=== PATIENT | female | born 1990 | race African-American/Black ===

== ENCOUNTER 2019-05-01 05:29 | Emergency (ER) | payer OTHER, SELFPAY ==
[~2019-05-01] VITALS: Ht 167.6 cm; Wt 103.4 kg
[2019-05-01 05:41] VITALS: BP 135/84
[2019-05-01] MEDS ORDERED: ACETAMINOPHEN 500 MG TABLET PO ONE (06:00)
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
[2019-05-01] MEDS ORDERED: NAPR-683 PO (07:27)
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
== END 2019-05-01 07:35 | disposition home or self-care (01) ==
LOC: ER 05:29
DX: S80.02XA Contusion of left knee, initial encounter (principal); F17.210 Nicotine dependence, cigarettes, uncomplicated; V43.52XA Car driver injured in collision with other type car in traffic accident, initial encounter; Y93.89 Activity, other specified; Y92.410 Unspecified street and highway as the place of occurrence of the external cause; Y99.8 Other external cause status
CPT/HCPCS: 73562; 81025; 99284

== ENCOUNTER 2019-07-13 15:59 | Inpatient (IN) | payer OTHER ==
[~2019-07-13] VITALS: Ht 167.6 cm; Wt 98.7 kg
[~2019-07-13 15:59] MED LIST: NAPR-683 PO
[2019-07-13 16:36] LABS: BILIRUBIN,URINE NEGATIVE (NEG); CLARITY,URINE TURBID; COLOR,URINE YELLOW; NITRITE,URINE POSITIVE (NEG); PROTEIN,URINE 100 mg/dL (NEG-TRACE)
[2019-07-13 16:44] LABS: BACTERIA,URINE MANY /HPF (0-FEW); SQUAMOUS EPITHELIAL CELL,UR MANY /LPF
[2019-07-13 16:45] LABS: WBC,URINE TNTC /HPF (0-4)
[2019-07-13 16:46] LABS: TRICHOMONAS,URINE PRESENT
[2019-07-13 16:59] LABS: BARBITURATES NEG (NEG); BENZODIAZEPINES NEG (NEG); CANNABINOIDS POS (NEG); COCAINE NEG (NEG); METHADONE NEG (NEG); OPIATES NEG (NEG); PHENCYCLIDINE NEG (NEG)
[2019-07-13 17:00] LABS: AMPHETAMINE/METHAMPHETAMINE NEG (NEG)
--- NOTE | 2019-07-13 17:41 | RAD ---
Exam: Abdomen 2 views INDICATION: Abdominal pain TECHNIQUE: Upright and supine views of the abdomen Comparisons: None FINDINGS: Focally dilated loop of small bowel noted within the left hemiabdomen. No suspicious masses or calcifications. No free air. Advise osseous structures are unremarkable. IMPRESSION: Focally dilated loop of small bowel in the left hemiabdomen. This may relate to obstruction versus focal ileus. CT is recommended for further evaluation. Electronically signed by: Jerry Tavarez MD (07/13/2019 5:38 PM) [facility]
[2019-07-13] MEDS ORDERED: KETOROLAC 30 MG/ML VIAL. IV ONE (18:00)
[2019-07-13] MEDS ORDERED: cefTRIAXone IV Push 1 GM VIAL. IVP ONE (18:00)
[2019-07-13] MEDS ORDERED: ACETAMINOPHEN 500 MG TABLET PO ONE (18:00)
[2019-07-13] MEDS ORDERED: AZITHROMYCIN 250 MG TABLET. PO ONE (18:00)
[2019-07-13] MEDS ORDERED: metroNIDAZOLE 500 MG TABLET PO ONE (18:00)
[2019-07-13] MEDS ORDERED: cefTRIAXone IM 250 MG VIAL IM ONE (18:00)
[2019-07-13] MEDS ORDERED: IV NORMAL SALINE 1000ML BAG 1,000 ML IV ONE ×3 (18:00→20:15)
--- NOTE | 2019-07-13 18:19 | PHYS DOC ---
Past Medical History Past Medical History: No Pertinent History, Other Additional Past Medical Histor: Abscesses to bilateral axillae. Past Surgical History: No Surgical History Additional Past Surgical Histo: Denies I&D. Alcohol Use: None Drug Use: None Adult General Chief Complaint Chief Complaint: ABDOMINAL PAIN HPI HPI Patient is a 28 year old female with no significant medical history who presents to the ED today complaining of 8 out of 10 left lower quadrant abdomi nal pain with nausea and vomiting that began 3 days ago. Patient denies any fever. Denies any diarrhea. Denies any chance she is constipated, last BM today. Review of Systems Review of Systems Constitutional: Denies fever or chills [] Eyes: Denies change in visual acuity, redness, or eye pain [] HENT: Denies nasal congestion or sore throat [] Respiratory: Denies cough or shortness of breath [] Cardiovascular: No additional information not addressed in HPI [] GI: Reports LLQ abdominal pain, nausea, vomiting, denies bloody stools or d iarrhea [] : Denies dysuria or hematuria [] Musculoskeletal: Denies back pain or joint pain [] Integument: Denies rash or skin lesions [] Neurologic: Denies headache, focal weakness or sensory changes [] All other systems were reviewed and found to be within normal limits, except as documented in this note. Current Medications Current Medications Current Medications Medications (Trade) Dose Ordered Sig/Addie Start Time Stop Time Status Last Admin Dose Admin Acetaminophen (Tylenol) 650 mg PRN Q4HRS PRN 07/13/19 20:15 07/14/19 20:14 UNV Acetaminophen/ Hydrocodone Bitart (Lortab 5/325) 1 tab PRN Q4HRS PRN 07/13/19 20:15 Azithromycin (Zithromax) 1,000 mg 1X ONCE 07/13/19 18:00 07/13/19 18:01 DC 07/13/19 18:21 1,000 MG Bisacodyl (Dulcolax Tab) 10 mg 1X STAT 07/13/19 20:08 07/13/19 20:17 DC Ceftriaxone Sodium (Rocephin Im) 250 mg 1X ONCE 07/13/19 18:00 07/13/19 18:01 Cancel Ceftriaxone Sodium (Rocephin) 1 gm 1X ONCE 8/13/19 18:00 07/13/19 18:04 DC 07/13/19 18:21 1 GM Docusate Sodium (Colace) 100 mg DAILY 07/14/19 09:00 Info (CONTRAST GIVEN -- Rx MONITORING) 1 each PRN DAILY PRN 07/13/19 19:15 07/15/19 19:14 Iohexol (Omnipaque 300 Mg/ml) 75 ml 1X ONCE 07/13/19 19:15 07/13/19 19:16 DC 07/13/19 19:16 75 ML Ketorolac Tromethamine (Toradol 15mg Vial) 15 mg PRN Q6HRS PRN 07/13/19 20:15 07/13/19 20:30 DC Ketorolac Tromethamine (Toradol 30mg Vial) 30 mg PRN Q6HRS PRN 07/13/19 20:30 07/18/19 20:29 Levofloxacin/ Dextrose 100 ml @ 100 mls/hr Q24H 07/13/19 21:00 Levofloxacin/ Dextrose (Levaquin Per Pharmacy) 1 each PRN DAILY PRN 07/13/19 20:15 Magnesium Hydroxide (Milk Of Magnesia) 2,400 mg PRN DAILY PRN 07/13/19 20:30 Magnesium Citrate (Citroma) 296 ml 1X ONCE 07/13/19 20:30 07/13/19 20:31 DC Metronidazole (Flagyl) 2,000 mg 1X ONCE 07/13/19 18:00 07/13/19 18:01 DC 07/13/19 18:21 2,000 MG Ondansetron HCl (Zofran) 4 mg PRN Q8HRS PRN 07/13/19 20:15 07/14/19 20:14 UNV Polyethylene Glycol (miraLAX PACKET) 17 gm DAILY 07/14/19 09:00 Sodium Chloride 1,000 ml @ 100 mls/hr 1X ONCE 07/13/19 20:15 07/14/19 06:14 UNV Tamsulosin HCl (Flomax) 0.4 mg QHS 07/13/19 21:00 Zolpidem Tartrate (Ambien) 5 mg PRN QHS PRN 07/13/19 20:15 Allergies Allergies Allergies Coded Allergies Type Severity Reaction Last Updated Verified No Known Drug Allergies 07/30/14 No Physical Exam Physical Exam Constitutional: Well developed, well nourished, no acute distress, non-toxic a ppearance. [] HENT: Normocephalic, atraumatic, bilateral external ears normal, oropharynx moist, no oral exudates, nose normal. [] Eyes: PERRLA, EOMI, conjunctiva normal, no discharge. [] Neck: Normal range of motion, no tenderness, supple, no stridor. [] Cardiovascular:Heart rate regular rhythm, no murmur [] Lungs & Thorax: Bilateral breath sounds clear to auscultation [] Abdomen: Bowel sounds normal, soft, no tenderness, no masses, no pulsatile masses. [] Skin: Warm, dry, no erythema, no rash. [] Back: No tenderness, no CVA tenderness. [] Extremities: No tenderness, no cyanosis, no clubbing, ROM intact, no edema. [] Neurologic: Alert and oriented X 3, normal motor function, normal sensory function, no focal deficits noted. [] Psychologic: Affect normal, judgement normal, mood normal. [] Current Patient Data Vital Signs Vital Signs Date Time Temp Pulse Resp B/P (MAP) Pulse Ox O2 Delivery O2 Flow Rate FiO2 07/13/19 18:00 102 18 115/77 (90) 90 Room Air 07/13/19 16:29 102.9 102.9 Lab Values Laboratory Tests Test 07/13/19 16:30 07/13/19 17:56 Urine Collection Type Void Urine Color Yellow Urine Clarity Turbid Urine pH 7.0 Urine Specific Tobias 1.020 Urine Protein 100 mg/dL (NEG-TRACE) Urine Glucose (UA) Negative mg/dL (NEG) Urine Ketones (Stick) Negative mg/dL (NEG) Urine Blood Trace (NEG) Urine Nitrite Positive (NEG) Urine Bilirubin Negative (NEG) Urine Urobilinogen Dipstick 1.0 mg/dL (0.2 mg/dL) Urine Leukocyte Esterase Large (NEG) Urine RBC 1-2 /HPF (0-2) Urine WBC Tntc /HPF (0-4) Urine Squamous Epithelial Cells Many /LPF Urine Bacteria Many /HPF (0-FEW) Urine Mucus Marked /LPF Urine Trichomonas Present POC Urine HCG, Qualitative Hcg negative (Negative) Urine Opiates Screen Neg (NEG) Urine Methadone Screen Neg (NEG) Urine Barbiturates Neg (NEG) Urine Phencyclidine Screen Neg (NEG) Urine Amphetamine/Methamphetamine Neg (NEG) Urine Benzodiazepines Screen Neg (NEG) Urine Cocaine Screen Neg (NEG) Urine Cannabinoids Screen Pos (NEG) Urine Ethyl Alcohol Neg (NEG) White Blood Count 12.6 x10^3/uL (4.0-11.0) H Red Blood Count 4.13 x10^6/uL (3.50-5.40) Hemoglobin 12.9 g/dL (12.0-15.5) Hematocrit 37.8 % (36.0-47.0) Mean Corpuscular Volume 91 fL (79-100) Mean Corpuscular Hemoglobin 31 pg (25-35) Mean Corpuscular Hemoglobin Concent 34 g/dL (31-37) Red Cell Distribution Width 12.9 % (11.5-14.5) Platelet Count 243 x10^3/uL (140-400) Neutrophils (%) (Auto) 69 % (31-73) Lymphocytes (%) (Auto) 20 % (24-48) L Monocytes (%) (Auto) 11 % (0-9) H Eosinophils (%) (Auto) 0 % (0-3) Basophils (%) (Auto) 0 % (0-3) Neutrophils # (Auto) 8.7 x10^3/uL (1.8-7.7) H Lymphocytes # (Auto) 2.5 x10^3/uL (1.0-4.8) Monocytes # (Auto) 1.4 x10^3/uL (0.0-1.1) H Eosinophils # (Auto) 0.0 x10^3/uL (0.0-0.7) Basophils # (Auto) 0.0 x10^3/uL (0.0-0.2) Sodium Level 136 mmol/L (136-145) Potassium Level 3.8 mmol/L (3.5-5.1) Chloride Level 100 mmol/L (98-107) Carbon Dioxide Level 28 mmol/L (21-32) Anion Gap 8 (6-14) Blood Urea Nitrogen 10 mg/dL (7-20) Creatinine 0.9 mg/dL (0.6-1.0) Estimated GFR (Cockcroft-Gault) 90.2 BUN/Creatinine Ratio 11 (6-20) Glucose Level 90 mg/dL (70-99) Lactic Acid Level 1.4 mmol/L (0.4-2.0) Calcium Level 9.1 mg/dL (8.5-10.1) Total Bilirubin 0.4 mg/dL (0.2-1.0) Aspartate Amino Transferase (AST) 23 U/L (15-37) Alanine Aminotransferase (ALT) 29 U/L (14-59) Alkaline Phosphatase 95 U/L (46-116) Total Protein 7.6 g/dL (6.4-8.2) Albumin 3.3 g/dL (3.4-5.0) L Albumin/Globulin Ratio 0.8 (1.0-1.7) L Lipase 50 U/L (73-393) L Ethyl Alcohol Level < 10 mg/dL (0-10) Laboratory Tests 07/13/19 17:56 Laboratory Tests 07/13/19 17:56 EKG EKG [] Radiology/Procedures Radiology/Procedures []PROCEDURE: ABDOMEN SUPINE & UPRIGHT Exam: Abdomen 2 views INDICATION: Abdominal pain TECHNIQUE: Upright and supine views of the abdomen Comparisons: None FINDINGS: Focally dilated loop of small bowel noted within the left hemiabdomen. No suspicious masses or calcifications. No free air. Advise osseous structures are unremarkable. IMPRESSION: Focally dilated loop of small bowel in the left hemiabdomen. This may relate to obstruction versus focal ileus. CT is recommended for further evaluation. Electronically signed by: Nirali Saini MD (07/13/2019 5:38 PM) [facility] DICTATED and SIGNED BY: NIRALI SAINI MD DATE: 07/13/19 1738 PROCEDURE: CT ABD PELV W/ IV CONTRST ONLY Exam: CT abdomen pelvis with contrast INDICATION: Concern for small bowel obstruction. Abnormal radiograph TECHNIQUE: Sequential axial images through the abdomen and pelvis obtained following the administration of 75 mL of Omni 300 IV contrast. Sagittal and coronal reformatted images were reconstructed from the axial data and reviewed. Comparisons: Radiograph earlier today FINDINGS: Heart size is normal. No pericardial effusion. Visualized lung bases are clear. No pleural effusion. Liver, spleen, pancreas, gallbladder and adrenals are unremarkable. Kidneys demonstrate symmetric enhancement. No perinephric inflammation or hydronephrosis. 2 mm nonobstructing calculus within the mid left kidney. No ureteral calculi. Bladder is decompressed not well evaluated. Uterus is not enlarged. No abnormal adnexal mass. Large and small bowel are unremarkable. No obstruction. No free intra-abdominal air or fluid. No dilated loops of bowel identified. Abdominal aorta has a normal course and caliber. Abdominal vasculature is patent. No enlarged abdominal lymph nodes. No suspicious osseous lesions or acute fractures. IMPRESSION: 1. No evidence for obstruction. Moderate to large stool burden within the ascending colon. 2. Nonobstructing 2 mm calculus within the mid left kidney. 3. No acute process identified within the abdomen or pelvis. Exposure: One or more of the following in the visualized dose reduction techniques were utilized for this examination: 1. Automated exposure control 2. Adjustment of the MA and/or KV according to patient size 3. Use of iterative of reconstructive technique Electronically signed by: Nirali Saini MD (07/13/2019 7:32 PM) [facility] DICTATED and SIGNED BY: NIRALI SAINI MD DATE: 07/13/191931 Course & Med Decision Making Course & Med Decision Making Pertinent Labs and Imaging studies reviewed. (See chart for details) This is a 28-year-old female patient who presents to the ED today complaining of left low quadrant abdominal pain. Symptoms began 3 days ago. Also complaining of nausea and vomiting. I had evaluated patient before her vitals were documented. Labs were ordered. Noted for Trichomonas and UTI. RN informed me patient has a temperature of 102.9, heart rate 111, BP 142/90 with resp. 20 oxygen Saturation 100% on RA. I noted this patient meets sepsis protocal 2 liters of IV fluids were ordered and Rocephin IV. Sepsis reassessment done on the template CBC with a WBC of 12.6 and a left shift. CMP would not acute findings. Abdomen supine and upright x-rays were noted for -Focally dilated loop of small bowel in the left hemiabdomen. This may relate to obstruction versus focal ileus. CT is recommended for further evaluation. CT of the abdomen and pelvis without contrast no evidence for obstruction. Moderate to large stool burden within the ascending colon. Nonobstructing 2 mm calculus within the mid left kidney. No acute process identified within the abdomen or pelvis. Consulted with who accepted patient for admission. Dragon Disclaimer Dragon Disclaimer This electronic medical record was generated, in whole or in part, using a voice recognition dictation system. Date and Time of Reassessment Date: Jul 13, 2019 Time: 19:50 Fluid Challenge Is the fluid challenge complet: No IBW Target Volume Used: Yes BMI > 30: Yes Vital Signs Vital Signs: Vital Signs Date Time Temp Pulse Resp B/P (MAP) Pulse Ox O2 Delivery O2 Flow Rate FiO2 07/13/19 18:00 102 18 115/77 (90) 90 Room Air 07/13/19 16:29 102.9 102.9 Temperature Source: Oral Respirations Respiratory Effort: Normal Respiratory Pattern: Normal Cardiovascular Pulse Rhythm: Regular Heart: Nml rate, reg. rhythm Lung Sounds Breath Sounds: Clear Capillary Refil Capillary Refill: Rt Hand > 3 seconds Peripheral Pulse Pulse Location: Monitor Pulse Strength: Normal (2+) Pulse Assessment Method: Monitor Integumentary Skin: Warm Skin Moisture: Clammy Skin Turgor: Normal Skin Color: warm Fingernail Color: WNL Departure Departure Impression: Primary Impression: Sepsis Additional Impressions: Trichomonas vaginitis Fever Pyelonephritis Constipation Disposition: ADMITTED INPATIENT Condition: STABLE Referrals: NO PCP (PCP) Problem Qualifiers Primary Impression: Sepsis Sepsis type: sepsis due to unspecified organism Sepsis acute organ dysfunction status: unspecified Qualified Codes: A41.9 - Sepsis, unspecified organism Additional Impressions: Fever Fever type: unspecified Qualified Codes: R50.9 - Fever, unspecified Constipation Constipation type: unspecified constipation type Qualified Codes: K59.00 - Constipation, unspecified [employer] Jul 13, 2019 18:19
[2019-07-13 18:27] LABS: BASO % 0 % (0-3); EOS % 0 % (0-3); HEMATOCRIT 37.8 % (36.0-47.0); HEMOGLOBIN 12.9 g/dL (12.0-15.5); LYMPH # 2.5 x10^3/uL (1.0-4.8); LYMPH % 20 % (24-48); MEAN CORPUSCULAR HEMOGLOBIN 31 pg (25-35); MEAN CORPUSCULAR HGB CONC 34 g/dL (31-37); MEAN CORPUSCULAR VOLUME 91 fL (79-100); MONO # 1.4 x10^3/uL (0.0-1.1); MONO % 11 % (0-9); NEUT # 8.7 x10^3/uL (1.8-7.7); NEUT % 69 % (31-73); PLATELET COUNT 243 x10^3/uL (140-400); RED BLOOD COUNT 4.13 x10^6/uL (3.50-5.40); RED CELL DISTRIBUTION WIDTH 12.9 % (11.5-14.5); WHITE BLOOD COUNT 12.6 x10^3/uL (4.0-11.0)
[2019-07-13 18:28] LABS: CALCIUM 9.1 mg/dL (8.5-10.1); CREATININE 0.9 mg/dL (0.6-1.0); GFR 90.2; POTASSIUM 3.8 mmol/L (3.5-5.1)
[2019-07-13 18:32] LABS: ALBUMIN 3.3 g/dL (3.4-5.0); ALBUMIN/GLOBULIN RATIO 0.8 (1.0-1.7); TOTAL BILIRUBIN 0.4 mg/dL (0.2-1.0); TOTAL PROTEIN 7.6 g/dL (6.4-8.2)
[2019-07-13] MEDS ORDERED: IOHEXOL 300 MG/ML 100ML VIAL. IV ONE (19:15)
[2019-07-13] MEDS ORDERED: CONTRAST GIVEN. MC PRN (19:15)
--- NOTE | 2019-07-13 19:35 | RAD ---
Exam: CT abdomen pelvis with contrast INDICATION: Concern for small bowel obstruction. Abnormal radiograph TECHNIQUE: Sequential axial images through the abdomen and pelvis obtained following the administration of 75 mL of Omni 300 IV contrast. Sagittal and coronal reformatted images were reconstructed from the axial data and reviewed. Comparisons: Radiograph earlier today FINDINGS: Heart size is normal. No pericardial effusion. Visualized lung bases are clear. No pleural effusion. Liver, spleen, pancreas, gallbladder and adrenals are unremarkable. Kidneys demonstrate symmetric enhancement. No perinephric inflammation or hydronephrosis. 2 mm nonobstructing calculus within the mid left kidney. No ureteral calculi. Bladder is decompressed not well evaluated. Uterus is not enlarged. No abnormal adnexal mass. Large and small bowel are unremarkable. No obstruction. No free intra-abdominal air or fluid. No dilated loops of bowel identified. Abdominal aorta has a normal course and caliber. Abdominal vasculature is patent. No enlarged abdominal lymph nodes. No suspicious osseous lesions or acute fractures. IMPRESSION: 1. No evidence for obstruction. Moderate to large stool burden within the ascending colon. 2. Nonobstructing 2 mm calculus within the mid left kidney. 3. No acute process identified within the abdomen or pelvis. Exposure: One or more of the following in the visualized dose reduction techniques were utilized for this examination: 1. Automated exposure control 2. Adjustment of the MA and/or KV according to patient size 3. Use of iterative of reconstructive technique Electronically signed by: Jerry Tavarez MD (07/13/2019 7:32 PM) [facility]
[2019-07-13] MEDS ORDERED: BISACODYL 5 MG TABLET.DR. PO STA (20:08)
[2019-07-13] MEDS ORDERED: ONDANSETRON PF 4 MG/2 ML VIAL. IV PRN (20:15)
[2019-07-13] MEDS ORDERED: KETOROLAC 15 MG/ML VIAL. IV PRN (20:15)
[2019-07-13] MEDS ORDERED: ACETAMINOPHEN 325 MG TABLET. PO PRN (20:15)
[2019-07-13] MEDS ORDERED: ZOLPIDEM 5 MG TABLET. PO PRN (20:15)
[2019-07-13] MEDS ORDERED: levOFLOXacin PER PHARMACY. MC PRN (20:15)
[2019-07-13] MEDS ORDERED: KETOROLAC 30 MG/ML VIAL. IV PRN (20:30)
[2019-07-13] MEDS ORDERED: MAGNESIUM HYDROXIDE 2,400 MG/30 ML ORAL.SUSP. PO PRN (20:30)
[2019-07-13] MEDS: MAGNESIUM CITRATE 296 ML SOLUTION. PO ONE ×2 (20:30→22:35)
--- NOTE | 2019-07-13 20:36 | PDOC1 ---
History and Physical Date of Admission Date of Admission DATE: 07/13/19 TIME: 20:29 Identification/Chief Complaint Chief Complaint left flank pain Source Source: Caregiver, Chart review, Patient History of Present Illness History of Present Illness 28 yo AA female, 3 day onset left flank pain with fevers, uti and 2 mm kidney stone non obstructing on imaging, puky with bucket at bedside, no signif past medical, smokes but no etoh, TRichomonas on UA too - got flagyl and azithro x 1 therapeutic dose from er. Will admit, hydrate, flomax, stool regimen (last bm yesterday, small with lots of stool ascending colon, LEvaquin and NPO post MN in case urologic proc, Some pain, better with IV pain meds, not narc seeking, usually < 5 mm should pass, denies gross hematuria and prev similar episodes Positive Cannabinoids in UDS Past Medical History Cardiovascular: No pertinent hx Pulmonary: No pertinent hx GI: No pertinent hx Heme/Onc: No pertinent hx Hepatobiliary: No pertinent hx Psych: No pertinent hx Rheumatologic: No pertinent hx Infectious disease: No pertinent hx ENT: No pertinent hx Renal/: No pertinent hx Endocrine: No pertinent hx Dermatology: No pertinent hx Past Surgical History Past Surgical History: No pertinent history Social History Smoke: <1 pack per day ALCOHOL: occassional Drugs: Marijuana Current Problem List Problem List Problems Medical Problems: (1) Fever Status: Acute (2) Pyelonephritis Status: Acute (3) Sepsis Status: Acute (4) Trichomonas vaginitis Status: Acute Current Medications Current Medications Current Medications Metronidazole (Flagyl) 2,000 mg 1X ONCE PO Last administered on 07/13/19at 18:21; Start 07/13/19 at 18:00; Stop 07/13/19 at 18:01; Status DC Ceftriaxone Sodium (Rocephin Im) 250 mg 1X ONCE IM ; Start 07/13/19 at 18:00; Stop 07/13/19 at 18:01; Status Cancel Azithromycin (Zithromax) 1,000 mg 1X ONCE PO Last administered on 07/13/19at 18:21; Start 07/13/19 at 18:00; Stop 07/13/19 at 18:01; Status DC Sodium Chloride 1,000 ml @ 1,000 mls/hr 1X ONCE IV Last administered on 07/13/19at 18:21; Start 07/13/19 at 18:00; Stop 07/13/19 at 18:59; Status DC Sodium Chloride 1,000 ml @ 1,000 mls/hr 1X ONCE IV ; Start 07/13/19 at 18:00; Stop 07/13/19 at 18:59; Status DC Acetaminophen (Tylenol) 1,000 mg 1X ONCE PO Last administered on 07/13/19at 18:21; Start 07/13/19 at 18:00; Stop 07/13/19 at 18:04; Status DC Ketorolac Tromethamine (Toradol 30mg Vial) 30 mg 1X ONCE IV Last administered on 07/13/19at 18:21; Start 07/13/19 at 18:00; Stop 07/13/19 at 18:04; Status DC Ceftriaxone Sodium (Rocephin) 1 gm 1X ONCE IVP Last administered on 07/13/19at 18:21; Start 07/13/19 at 18:00; Stop 07/13/19 at 18:04; Status DC Iohexol (Omnipaque 300 Mg/ml) 75 ml 1X ONCE IV Last administered on 07/13/19at 19:16; Start 07/13/19 at 19:15; Stop 07/13/19 at 19:16; Status DC Info (CONTRAST GIVEN -- Rx MONITORING) 1 each PRN DAILY PRN MC SEE COMMENTS; Start 07/13/19 at 19:15; Stop 07/15/19 at 19:14 Levofloxacin/ Dextrose (Levaquin Per Pharmacy) 1 each PRN DAILY PRN MC SEE COMMENTS; Start 07/13/19 at 20:15 Ketorolac Tromethamine (Toradol 15mg Vial) 15 mg PRN Q6HRS PRN IV PAIN; Start 07/13/19 at 20:15; Stop 07/18/19 at 20:14 Acetaminophen/ Hydrocodone Bitart (Lortab 5/325) 1 tab PRN Q4HRS PRN PO PAIN; Start 07/13/19 at 20:15 Sodium Chloride 1,000 ml @ 100 mls/hr Q10H IV ; Start 07/13/19 at 21:00 Zolpidem Tartrate (Ambien) 5 mg PRN QHS PRN PO INSOMNIA; Start 07/13/19 at 20:15 Acetaminophen (Tylenol) 500 mg PRN Q6HRS PRN PO MILD PAIN / TEMP; Start 07/13/19 at 20:15 Ondansetron HCl (Zofran) 4 mg PRN Q6HRS PRN IV NAUSEA/VOMITING; Start 07/13/19 at 20:15 Ondansetron HCl (Zofran) 4 mg PRN Q8HRS PRN IV NAUSEA/VOMITING; Start 07/13/19 at 20:15; Stop 07/14/19 at 20:14; Status UNV Acetaminophen (Tylenol) 650 mg PRN Q4HRS PRN PO FEVER; Start 07/13/19 at 20:15; Stop 07/14/19 at 20:14; Status UNV Sodium Chloride 1,000 ml @ 100 mls/hr 1X ONCE IV ; Start 07/13/19 at 20:15; Stop 07/14/19 at 06:14; Status UNV Magnesium Citrate (Citroma) 296 ml 1X ONCE PO ; Start 07/13/19 at 20:30; Stop 07/13/19 at 20:31 Bisacodyl (Dulcolax Tab) 10 mg 1X STAT PO ; Start 07/13/19 at 20:08; Stop 07/13/19 at 20:17; Status DC Levofloxacin/ Dextrose 100 ml @ 100 mls/hr Q24H IV ; Start 07/13/19 at 21:00 Active Scripts Active Naprosyn (Naproxen) 500 Mg Tablet 1 Tab PO BID Allergies Allergies: Coded Allergies: No Known Drug Allergies (Unverified , 07/30/14) ROS Review of System as [per HPI, rest 14 pt neg Physical Exam General: Alert, Oriented X3, Cooperative, No acute distress HEENT: Atraumatic, PERRLA, EOMI Lungs: Clear to auscultation, Normal air movement Heart: S1S2, RRR, no thrills, no rubs, no gallops, no murmurs Cardiovascular: S1 Breasts: Normal, Rt breast nml w/o mass, Lt breast nml w/o mass, Nipples normal Abdomen: Soft, Other (left flank pain and LLQ tendereness) Rectal Exam: not examined PELVIC: Nml ext genitalia Extremities: No clubbing, No cyanosis, No edema, Normal pulses, No tenderness/swelling Skin: No rashes, No breakdown, No significant lesion Neuro: Normal gait, Normal speech, Strength at 5/5 X4 ext, Normal tone, Sensation intact, Cranial nerves 3-12 NL, Reflexes 2+ Psych/Mental Status: Mental status NL, Mood NL Vitals Vitals Vital Signs Date Time Temp Pulse Resp B/P (MAP) Pulse Ox O2 Delivery O2 Flow Rate FiO2 07/13/19 18:00 102 18 115/77 (90) 90 Room Air 07/13/19 16:29 102.9 102.9 Labs Labs Laboratory Tests Test 07/13/19 16:30 07/13/19 17:56 Urine Collection Type Void Urine Color Yellow Urine Clarity Turbid Urine pH 7.0 Urine Specific [place] 1.020 Urine Protein 100 mg/dL (NEG-TRACE) Urine Glucose (UA) Negative mg/dL (NEG) Urine Ketones (Stick) Negative mg/dL (NEG) Urine Blood Trace (NEG) Urine Nitrite Positive (NEG) Urine Bilirubin Negative (NEG) Urine Urobilinogen Dipstick 1.0 mg/dL (0.2 mg/dL) Urine Leukocyte Esterase Large (NEG) Urine RBC 1-2 /HPF (0-2) Urine WBC Tntc /HPF (0-4) Urine Squamous Epithelial Cells Many /LPF Urine Bacteria Many /HPF (0-FEW) Urine Mucus Marked /LPF Urine Trichomonas Present Bedside Urine HCG, Qualitative Hcg negative (Negative) Urine Opiates Screen Neg (NEG) Urine Methadone Screen Neg (NEG) Urine Barbiturates Neg (NEG) Urine Phencyclidine Screen Neg (NEG) Urine Amphetamine/Methamphetamine Neg (NEG) Urine Benzodiazepines Screen Neg (NEG) Urine Cocaine Screen Neg (NEG) Urine Cannabinoids Screen Pos (NEG) Urine Ethyl Alcohol Neg (NEG) White Blood Count 12.6 x10^3/uL (4.0-11.0) Red Blood Count 4.13 x10^6/uL (3.50-5.40) Hemoglobin 12.9 g/dL (12.0-15.5) Hematocrit 37.8 % (36.0-47.0) Mean Corpuscular Volume 91 fL (79-100) Mean Corpuscular Hemoglobin 31 pg (25-35) Mean Corpuscular Hemoglobin Concent 34 g/dL (31-37) Red Cell Distribution Width 12.9 % (11.5-14.5) Platelet Count 243 x10^3/uL (140-400) Neutrophils (%) (Auto) 69 % (31-73) Lymphocytes (%) (Auto) 20 % (24-48) Monocytes (%) (Auto) 11 % (0-9) Eosinophils (%) (Auto) 0 % (0-3) Basophils (%) (Auto) 0 % (0-3) Neutrophils # (Auto) 8.7 x10^3/uL (1.8-7.7) Lymphocytes # (Auto) 2.5 x10^3/uL (1.0-4.8) Monocytes # (Auto) 1.4 x10^3/uL (0.0-1.1) Eosinophils # (Auto) 0.0 x10^3/uL (0.0-0.7) Basophils # (Auto) 0.0 x10^3/uL (0.0-0.2) Sodium Level 136 mmol/L (136-145) Potassium Level 3.8 mmol/L (3.5-5.1) Chloride Level 100 mmol/L (98-107) Carbon Dioxide Level 28 mmol/L (21-32) Anion Gap 8 (6-14) Blood Urea Nitrogen 10 mg/dL (7-20) Creatinine 0.9 mg/dL (0.6-1.0) Estimated GFR (Cockcroft-Gault) 90.2 BUN/Creatinine Ratio 11 (6-20) Glucose Level 90 mg/dL (70-99) Lactic Acid Level 1.4 mmol/L (0.4-2.0) Calcium Level 9.1 mg/dL (8.5-10.1) Total Bilirubin 0.4 mg/dL (0.2-1.0) Aspartate Amino Transf (AST/SGOT) 23 U/L (15-37) Alanine Aminotransferase (ALT/SGPT) 29 U/L (14-59) Alkaline Phosphatase 95 U/L (46-116) Total Protein 7.6 g/dL (6.4-8.2) Albumin 3.3 g/dL (3.4-5.0) Albumin/Globulin Ratio 0.8 (1.0-1.7) Lipase 50 U/L (73-393) Ethyl Alcohol Level < 10 mg/dL (0-10) Laboratory Tests Test 07/13/19 16:30 07/13/19 17:56 Urine Collection Type Void Urine Color Yellow Urine Clarity Turbid Urine pH 7.0 Urine Specific [place] 1.020 Urine Protein 100 mg/dL (NEG-TRACE) Urine Glucose (UA) Negative mg/dL (NEG) Urine Ketones (Stick) Negative mg/dL (NEG) Urine Blood Trace (NEG) Urine Nitrite Positive (NEG) Urine Bilirubin Negative (NEG) Urine Urobilinogen Dipstick 1.0 mg/dL (0.2 mg/dL) Urine Leukocyte Esterase Large (NEG) Urine RBC 1-2 /HPF (0-2) Urine WBC Tntc /HPF (0-4) Urine Squamous Epithelial Cells Many /LPF Urine Bacteria Many /HPF (0-FEW) Urine Mucus Marked /LPF Urine Trichomonas Present Bedside Urine HCG, Qualitative Hcg negative (Negative) Urine Opiates Screen Neg (NEG) Urine Methadone Screen Neg (NEG) Urine Barbiturates Neg (NEG) Urine Phencyclidine Screen Neg (NEG) Urine Amphetamine/Methamphetamine Neg (NEG) Urine Benzodiazepines Screen Neg (NEG) Urine Cocaine Screen Neg (NEG) Urine Cannabinoids Screen Pos (NEG) Urine Ethyl Alcohol Neg (NEG) White Blood Count 12.6 x10^3/uL (4.0-11.0) Red Blood Count 4.13 x10^6/uL (3.50-5.40) Hemoglobin 12.9 g/dL (12.0-15.5) Hematocrit 37.8 % (36.0-47.0) Mean Corpuscular Volume 91 fL (79-100) Mean Corpuscular Hemoglobin 31 pg (25-35) Mean Corpuscular Hemoglobin Concent 34 g/dL (31-37) Red Cell Distribution Width 12.9 % (11.5-14.5) Platelet Count 243 x10^3/uL (140-400) Neutrophils (%) (Auto) 69 % (31-73) Lymphocytes (%) (Auto) 20 % (24-48) Monocytes (%) (Auto) 11 % (0-9) Eosinophils (%) (Auto) 0 % (0-3) Basophils (%) (Auto) 0 % (0-3) Neutrophils # (Auto) 8.7 x10^3/uL (1.8-7.7) Lymphocytes # (Auto) 2.5 x10^3/uL (1.0-4.8) Monocytes # (Auto) 1.4 x10^3/uL (0.0-1.1) Eosinophils # (Auto) 0.0 x10^3/uL (0.0-0.7) Basophils # (Auto) 0.0 x10^3/uL (0.0-0.2) Sodium Level 136 mmol/L (136-145) Potassium Level 3.8 mmol/L (3.5-5.1) Chloride Level 100 mmol/L (98-107) Carbon Dioxide Level 28 mmol/L (21-32) Anion Gap 8 (6-14) Blood Urea Nitrogen 10 mg/dL (7-20) Creatinine 0.9 mg/dL (0.6-1.0) Estimated GFR (Cockcroft-Gault) 90.2 BUN/Creatinine Ratio 11 (6-20) Glucose Level 90 mg/dL (70-99) Lactic Acid Level 1.4 mmol/L (0.4-2.0) Calcium Level 9.1 mg/dL (8.5-10.1) Total Bilirubin 0.4 mg/dL (0.2-1.0) Aspartate Amino Transf (AST/SGOT) 23 U/L (15-37) Alanine Aminotransferase (ALT/SGPT) 29 U/L (14-59) Alkaline Phosphatase 95 U/L (46-116) Total Protein 7.6 g/dL (6.4-8.2) Albumin 3.3 g/dL (3.4-5.0) Albumin/Globulin Ratio 0.8 (1.0-1.7) Lipase 50 U/L (73-393) Ethyl Alcohol Level < 10 mg/dL (0-10) VTE Prophylaxis Ordered VTE Prophylaxis Devices: Yes VTE Pharmacological Prophylaxi: Yes Assessment/Plan Assessment/Plan UTI with 2 mm non obstructing stone with left flank pain Trichomoniasis Positive cannabinoids UDS LEukocytosis 12 Smoker < 1ppday Constipation PLAN: MEd surg floor, 2 MN Inc IVF to 125 FLomax, levaquin NPO post mN - consult urology but doubt any surgical proc since small and pain controlled with meds BOwel regimen Miryam got flagyl and azithro for trichomonas FULL CODE Seen at ER DIANN SCALES MD Jul 13, 2019 20:36
[2019-07-13 21:45] VITALS: BP 113/53
--- NOTE | 2019-07-13 22:15 | NUR ---
The patient, RITO COFFEY, 28 y/o, F admitted by DIANN SCALES MD, was given written information regarding hospital policies, unit procedures and contact persons. Pt afebrile and VSS, with no c/o pain upon admission. Pt's admission packet reviewed, plan of care discussed, and valuables were checked and left in room. Pt in bed and call light within reach, will continue to monitor.
[2019-07-13] MEDS: IV NORMAL SALINE 1000ML BAG 1,000 ML IV SCH (22:36)
[2019-07-13] MEDS: TAMSULOSIN 0.4 MG CAP.ER.24H. PO SCH (22:36)
[2019-07-13 23:00] VITALS: BP 135/82
[2019-07-13] MEDS: ONDANSETRON PF 4 MG/2 ML VIAL. IV PRN (23:04)
--- NOTE | 2019-07-14 00:40 | NUR ---
Mag citrate administration undone on eMAR and wasted in [employer] d/t patient reporting BM after medication was scanned and opened at bedside. Patient resting, will continue to monitor.
[2019-07-14 03:00] VITALS: BP 108/63
[2019-07-14 04:52] LABS: BASO % 0 % (0-3); EOS % 0 % (0-3); HEMATOCRIT 35.8 % (36.0-47.0); HEMOGLOBIN 12.2 g/dL (12.0-15.5); LYMPH # 1.1 x10^3/uL (1.0-4.8); LYMPH % 9 % (24-48); MEAN CORPUSCULAR HEMOGLOBIN 31 pg (25-35); MEAN CORPUSCULAR HGB CONC 34 g/dL (31-37); MEAN CORPUSCULAR VOLUME 92 fL (79-100); MONO # 1.5 x10^3/uL (0.0-1.1); MONO % 12 % (0-9); NEUT # 9.8 x10^3/uL (1.8-7.7); NEUT % 79 % (31-73); PLATELET COUNT 222 x10^3/uL (140-400); WHITE BLOOD COUNT 12.4 x10^3/uL (4.0-11.0)
[2019-07-14 05:00] LABS: CALCIUM 8.5 mg/dL (8.5-10.1); CREATININE 0.8 mg/dL (0.6-1.0); GFR 103.3; POTASSIUM 3.3 mmol/L (3.5-5.1)
[2019-07-14] MEDS: ONDANSETRON PF 4 MG/2 ML VIAL. IV PRN ×3 (05:48→17:55)
[2019-07-14] MEDS: IV NORMAL SALINE 1000ML BAG 1,000 ML IV SCH ×3 (05:51→21:07)
[2019-07-14 07:00] VITALS: BP 109/57
[2019-07-14] MEDS: DOCUSATE SODIUM 100 MG CAPSULE. PO SCH (07:11)
[2019-07-14] MEDS: POLYETHYLENE GLYCOL 3350 17 GM PACKET. PO SCH (07:11)
--- NOTE | 2019-07-14 09:50 | PDOC2 ---
ETHAN THOMAS Jermaine TALENT ACQUISITION PROGRAM MANAGER 07/14/19 0950: UROLOGY CONSULT Date of Consult Date of Consult DATE: 07/14/19 TIME: 09:48 Reason for Consult Reason for Consult: Kidney stones Identification/Chief Complaint Chief Complaint Kidney stones Source Source: Patient History of Present Illness Reason for Visit: Patient beryl 28 year old female who presented through the ER last night with pain to her left lower side and abdomen. This is the first time she has ever had a s tone. The pain had been going on for three days, during which she felt nauseated and light headed. 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 Today her pain is still present on the left flank, but is mostly "soreness" and is much more improved than it was last night at only 4/10 today. She is no longer nauseated and would liek to eat if possible. She also prefers not to have surgery if possible. She relates that he is a very "healthy" individual without any chronic problems that she is aware of. Past Medical History Cardiovascular: No pertinent hx Pulmonary: No pertinent hx GI: No pertinent hx Heme/Onc: No pertinent hx Hepatobiliary: No pertinent hx Psych: No pertinent hx Rheumatologic: No pertinent hx Infectious disease: No pertinent hx ENT: No pertinent hx Renal/: No pertinent hx Endocrine: No pertinent hx Dermatology: No pertinent hx Grav: 1 Para: 1 Past Surgical History Past Surgical History: No pertinent history Social History <1 pack per day ALCOHOL: occassional Drugs: Marijuana Current Medications Current Medications Current Medications Acetaminophen (Tylenol) 500 mg PRN Q6HRS PRN PO MILD PAIN / TEMP; Start 07/13/19 at 20:15 Acetaminophen (Tylenol) 650 mg PRN Q4HRS PRN PO FEVER; Start 07/13/19 at 20:15; Stop 07/14/19 at 20:14; Status UNV Acetaminophen (Tylenol) 1,000 mg 1X ONCE PO Last administered on 07/13/19at 18:21; Start 07/13/19 at 18:00; Stop 07/13/19 at 18:04; Status DC Acetaminophen/ Hydrocodone Bitart (Lortab 5/325) 1 tab PRN Q4HRS PRN PO MODERATE PAIN, SEVERE PAIN; Start 07/13/19 at 20:15 Azithromycin (Zithromax) 1,000 mg 1X ONCE PO Last administered on 07/13/19at 18:21; Start 07/13/19 at 18:00; Stop 07/13/19 at 18:01; Status DC Bisacodyl (Dulcolax Tab) 10 mg 1X STAT PO Last administered on 07/13/19at 21:06; Start 07/13/19 at 20:08; Stop 07/13/19 at 20:17; Status DC Ceftriaxone Sodium (Rocephin Im) 250 mg 1X ONCE IM ; Start 07/13/19 at 18:00; Stop 07/13/19 at 18:01; Status Cancel Ceftriaxone Sodium (Rocephin) 1 gm 1X ONCE IVP Last administered on 07/13/19at 18:21; Start 07/13/19 at 18:00; Stop 07/13/19 at 18:04; Status DC Docusate Sodium (Colace) 100 mg DAILY PO ; Start 07/14/19 at 09:00 Info (CONTRAST GIVEN -- Rx MONITORING) 1 each PRN DAILY PRN MC SEE COMMENTS; Start 07/13/19 at 19:15; Stop 07/15/19 at 19:14 Iohexol (Omnipaque 300 Mg/ml) 75 ml 1X ONCE IV Last administered on 07/13/19at 19:16; Start 07/13/19 at 19:15; Stop 07/13/19 at 19:16; Status DC Ketorolac Tromethamine (Toradol 15mg Vial) 15 mg PRN Q6HRS PRN IV PAIN; Start 07/13/19 at 20:15; Stop 07/13/19 at 20:30; Status DC Ketorolac Tromethamine (Toradol 30mg Vial) 30 mg 1X ONCE IV Last administered on 07/13/19at 18:21; Start 07/13/19 at 18:00; Stop 07/13/19 at 18:04; Status DC Ketorolac Tromethamine (Toradol 30mg Vial) 30 mg PRN Q6HRS PRN IV PAIN Last administered on 07/14/19at 05:51; Start 07/13/19 at 20:30; Stop 07/18/19 at 20:29 Levofloxacin/ Dextrose 100 ml @ 100 mls/hr Q24H IV Last administered on 07/13/19at 22:36; Start 07/13/19 at 21:00 Levofloxacin/ Dextrose (Levaquin Per Pharmacy) 1 each PRN DAILY PRN MC SEE COMMENTS; Start 07/13/19 at 20:15 Magnesium Hydroxide (Milk Of Magnesia) 2,400 mg PRN DAILY PRN PO CONSTIPATION; Start 07/13/19 at 20:30 Magnesium Citrate (Citroma) 296 ml 1X ONCE PO ; Start 07/13/19 at 20:30; Stop 07/13/19 at 20:31; Status DC Metronidazole (Flagyl) 2,000 mg 1X ONCE PO Last administered on 07/13/19at 18:21; Start 07/13/19 at 18:00; Stop 07/13/19 at 18:01; Status DC Ondansetron HCl (Zofran) 4 mg PRN Q6HRS PRN IV NAUSEA/VOMITING Last administered on 07/14/19at 05:51; Start 07/13/19 at 20:15 Ondansetron HCl (Zofran) 4 mg PRN Q8HRS PRN IV NAUSEA/VOMITING; Start 07/13/19 at 20:15; Stop 07/14/19 at 20:14; Status UNV Polyethylene Glycol (miraLAX PACKET) 17 gm DAILY PO ; Start 07/14/19 at 09:00 Sodium Chloride 1,000 ml @ 100 mls/hr 1X ONCE IV ; Start 07/13/19 at 20:15; Stop 07/14/19 at 06:14; Status UNV Sodium Chloride 1,000 ml @ 125 mls/hr Q8H IV Last administered on 07/14/19at 05:51; Start 07/13/19 at 21:00 Sodium Chloride 1,000 ml @ 1,000 mls/hr 1X ONCE IV Last administered on 07/13/19at 18:21; Start 07/13/19 at 18:00; Stop 07/13/19 at 18:59; Status DC Sodium Chloride 1,000 ml @ 1,000 mls/hr 1X ONCE IV Last administered on 07/13/19at 21:06; Start 07/13/19 at 18:00; Stop 07/13/19 at 18:59; Status DC Tamsulosin HCl (Flomax) 0.4 mg QHS PO Last administered on 07/13/19at 22:36; Start 07/13/19 at 21:00 Zolpidem Tartrate (Ambien) 5 mg PRN QHS PRN PO INSOMNIA; Start 07/13/19 at 20:15 Allergies Allergies: Coded Allergies: No Known Drug Allergies (Unverified , 07/30/14) ROS Review Of Systems: CONSTITUTIONAL: No fever or chills EYES: No recent changes SKIN: No rash or itching CARDIOVASCULAR: No chest pain, syncope, palpitations, or edema RESPIRATORY: No SOB or cough GASTROINTESTINAL: + abdominal pain left side NEUROLOGICAL: No headaches or weakness ENDOCRINE: No cold or heat intolerance GENITOURINARY: No dysuria, no hematuria MUSCULOSKELETAL: No back pain or joint pain LYMPHATICS: No enlarged lymph nodes PSYCHIATRIC: No anxiety or depression Physical Exam Physical Exam: General: Pleasant, no acute distress, well groomed Eyes: conjunctiva anicteric, eyes full range of motion ENT: moist oral mucosa, normal dentition Neck: Trachea midline, no masses CVA: no CVA pain on testing on right, slight on the left Respiratory: unlabored breathing, not using accessory muscles, Abdomen: + left lower abdominal pain on testing, none on the right Skin: no rashes or skin lesions on visualized skin Psych: normal mood, affect. Alert and oriented x 3. Vitals VITALS Vital Signs Date Time Temp Pulse Resp B/P (MAP) Pulse Ox O2 Delivery O2 Flow Rate FiO2 07/14/19 07:20 Room Air 07/14/19 07:00 99.2 74 14 109/57 (74) 96 99.2 Labs Labs Laboratory Tests Test 07/13/19 16:30 07/13/19 17:56 07/14/19 03:40 Urine Collection Type Void Urine Color Yellow Urine Clarity Turbid Urine pH 7.0 Urine Specific [place] 1.020 Urine Protein 100 mg/dL (NEG-TRACE) Urine Glucose (UA) Negative mg/dL (NEG) Urine Ketones (Stick) Negative mg/dL (NEG) Urine Blood Trace (NEG) Urine Nitrite Positive (NEG) Urine Bilirubin Negative (NEG) Urine Urobilinogen Dipstick 1.0 mg/dL (0.2 mg/dL) Urine Leukocyte Esterase Large (NEG) Urine RBC 1-2 /HPF (0-2) Urine WBC Tntc /HPF (0-4) Urine Squamous Epithelial Cells Many /LPF Urine Bacteria Many /HPF (0-FEW) Urine Mucus Marked /LPF Urine Trichomonas Present Bedside Urine HCG, Qualitative Hcg negative (Negative) Urine Opiates Screen Neg (NEG) Urine Methadone Screen Neg (NEG) Urine Barbiturates Neg (NEG) Urine Phencyclidine Screen Neg (NEG) Urine Amphetamine/Methamphetamine Neg (NEG) Urine Benzodiazepines Screen Neg (NEG) Urine Cocaine Screen Neg (NEG) Urine Cannabinoids Screen Pos (NEG) Urine Ethyl Alcohol Neg (NEG) White Blood Count 12.6 x10^3/uL (4.0-11.0) 12.4 x10^3/uL (4.0-11.0) Red Blood Count 4.13 x10^6/uL (3.50-5.40) 3.90 x10^6/uL (3.50-5.40) Hemoglobin 12.9 g/dL (12.0-15.5) 12.2 g/dL (12.0-15.5) Hematocrit 37.8 % (36.0-47.0) 35.8 % (36.0-47.0) Mean Corpuscular Volume 91 fL (79-100) 92 fL (79-100) Mean Corpuscular Hemoglobin 31 pg (25-35) 31 pg (25-35) Mean Corpuscular Hemoglobin Concent 34 g/dL (31-37) 34 g/dL (31-37) Red Cell Distribution Width 12.9 % (11.5-14.5) 13.0 % (11.5-14.5) Platelet Count 243 x10^3/uL (140-400) 222 x10^3/uL (140-400) Neutrophils (%) (Auto) 69 % (31-73) 79 % (31-73) Lymphocytes (%) (Auto) 20 % (24-48) 9 % (24-48) Monocytes (%) (Auto) 11 % (0-9) 12 % (0-9) Eosinophils (%) (Auto) 0 % (0-3) 0 % (0-3) Basophils (%) (Auto) 0 % (0-3) 0 % (0-3) Neutrophils # (Auto) 8.7 x10^3/uL (1.8-7.7) 9.8 x10^3/uL (1.8-7.7) Lymphocytes # (Auto) 2.5 x10^3/uL (1.0-4.8) 1.1 x10^3/uL (1.0-4.8) Monocytes # (Auto) 1.4 x10^3/uL (0.0-1.1) 1.5 x10^3/uL (0.0-1.1) Eosinophils # (Auto) 0.0 x10^3/uL (0.0-0.7) 0.0 x10^3/uL (0.0-0.7) Basophils # (Auto) 0.0 x10^3/uL (0.0-0.2) 0.0 x10^3/uL (0.0-0.2) Sodium Level 136 mmol/L (136-145) 139 mmol/L (136-145) Potassium Level 3.8 mmol/L (3.5-5.1) 3.3 mmol/L (3.5-5.1) Chloride Level 100 mmol/L (98-107) 105 mmol/L (98-107) Carbon Dioxide Level 28 mmol/L (21-32) 24 mmol/L (21-32) Anion Gap 8 (6-14) 10 (6-14) Blood Urea Nitrogen 10 mg/dL (7-20) 6 mg/dL (7-20) Creatinine 0.9 mg/dL (0.6-1.0) 0.8 mg/dL (0.6-1.0) Estimated GFR (Cockcroft-Gault) 90.2 103.3 BUN/Creatinine Ratio 11 (6-20) Glucose Level 90 mg/dL (70-99) 116 mg/dL (70-99) Lactic Acid Level 1.4 mmol/L (0.4-2.0) Calcium Level 9.1 mg/dL (8.5-10.1) 8.5 mg/dL (8.5-10.1) Total Bilirubin 0.4 mg/dL (0.2-1.0) Aspartate Amino Transf (AST/SGOT) 23 U/L (15-37) Alanine Aminotransferase (ALT/SGPT) 29 U/L (14-59) Alkaline Phosphatase 95 U/L (46-116) Total Protein 7.6 g/dL (6.4-8.2) Albumin 3.3 g/dL (3.4-5.0) Albumin/Globulin Ratio 0.8 (1.0-1.7) Lipase 50 U/L (73-393) Ethyl Alcohol Level < 10 mg/dL (0-10) Erythrocyte Sedimentation Rate 33 (0-25) Laboratory Tests Test 07/13/19 16:30 07/13/19 17:56 07/14/19 03:40 Urine Collection Type Void Urine Color Yellow Urine Clarity Turbid Urine pH 7.0 Urine Specific [place] 1.020 Urine Protein 100 mg/dL (NEG-TRACE) Urine Glucose (UA) Negative mg/dL (NEG) Urine Ketones (Stick) Negative mg/dL (NEG) Urine Blood Trace (NEG) Urine Nitrite Positive (NEG) Urine Bilirubin Negative (NEG) Urine Urobilinogen Dipstick 1.0 mg/dL (0.2 mg/dL) Urine Leukocyte Esterase Large (NEG) Urine RBC 1-2 /HPF (0-2) Urine WBC Tntc /HPF (0-4) Urine Squamous Epithelial Cells Many /LPF Urine Bacteria Many /HPF (0-FEW) Urine Mucus Marked /LPF Urine Trichomonas Present Bedside Urine HCG, Qualitative Hcg negative (Negative) Urine Opiates Screen Neg (NEG) Urine Methadone Screen Neg (NEG) Urine Barbiturates Neg (NEG) Urine Phencyclidine Screen Neg (NEG) Urine Amphetamine/Methamphetamine Neg (NEG) Urine Benzodiazepines Screen Neg (NEG) Urine Cocaine Screen Neg (NEG) Urine Cannabinoids Screen Pos (NEG) Urine Ethyl Alcohol Neg (NEG) White Blood Count 12.6 x10^3/uL (4.0-11.0) 12.4 x10^3/uL (4.0-11.0) Red Blood Count 4.13 x10^6/uL (3.50-5.40) 3.90 x10^6/uL (3.50-5.40) Hemoglobin 12.9 g/dL (12.0-15.5) 12.2 g/dL (12.0-15.5) Hematocrit 37.8 % (36.0-47.0) 35.8 % (36.0-47.0) Mean Corpuscular Volume 91 fL (79-100) 92 fL (79-100) Mean Corpuscular Hemoglobin 31 pg (25-35) 31 pg (25-35) Mean Corpuscular Hemoglobin Concent 34 g/dL (31-37) 34 g/dL (31-37) Red Cell Distribution Width 12.9 % (11.5-14.5) 13.0 % (11.5-14.5) Platelet Count 243 x10^3/uL (140-400) 222 x10^3/uL (140-400) Neutrophils (%) (Auto) 69 % (31-73) 79 % (31-73) Lymphocytes (%) (Auto) 20 % (24-48) 9 % (24-48) Monocytes (%) (Auto) 11 % (0-9) 12 % (0-9) Eosinophils (%) (Auto) 0 % (0-3) 0 % (0-3) Basophils (%) (Auto) 0 % (0-3) 0 % (0-3) Neutrophils # (Auto) 8.7 x10^3/uL (1.8-7.7) 9.8 x10^3/uL (1.8-7.7) Lymphocytes # (Auto) 2.5 x10^3/uL (1.0-4.8) 1.1 x10^3/uL (1.0-4.8) Monocytes # (Auto) 1.4 x10^3/uL (0.0-1.1) 1.5 x10^3/uL (0.0-1.1) Eosinophils # (Auto) 0.0 x10^3/uL (0.0-0.7) 0.0 x10^3/uL (0.0-0.7) Basophils # (Auto) 0.0 x10^3/uL (0.0-0.2) 0.0 x10^3/uL (0.0-0.2) Sodium Level 136 mmol/L (136-145) 139 mmol/L (136-145) Potassium Level 3.8 mmol/L (3.5-5.1) 3.3 mmol/L (3.5-5.1) Chloride Level 100 mmol/L (98-107) 105 mmol/L (98-107) Carbon Dioxide Level 28 mmol/L (21-32) 24 mmol/L (21-32) Anion Gap 8 (6-14) 10 (6-14) Blood Urea Nitrogen 10 mg/dL (7-20) 6 mg/dL (7-20) Creatinine 0.9 mg/dL (0.6-1.0) 0.8 mg/dL (0.6-1.0) Estimated GFR (Cockcroft-Gault) 90.2 103.3 BUN/Creatinine Ratio 11 (6-20) Glucose Level 90 mg/dL (70-99) 116 mg/dL (70-99) Lactic Acid Level 1.4 mmol/L (0.4-2.0) Calcium Level 9.1 mg/dL (8.5-10.1) 8.5 mg/dL (8.5-10.1) Total Bilirubin 0.4 mg/dL (0.2-1.0) Aspartate Amino Transf (AST/SGOT) 23 U/L (15-37) Alanine Aminotransferase (ALT/SGPT) 29 U/L (14-59) Alkaline Phosphatase 95 U/L (46-116) Total Protein 7.6 g/dL (6.4-8.2) Albumin 3.3 g/dL (3.4-5.0) Albumin/Globulin Ratio 0.8 (1.0-1.7) Lipase 50 U/L (73-393) Ethyl Alcohol Level < 10 mg/dL (0-10) Erythrocyte Sedimentation Rate 33 (0-25) Images Images MPRESSION Nonobstructive bowel gas pattern. Left renal calculus is not visualized by radiograph. Assessment/Plan Assessment/Plan Stone found on CT-2 mm calculus within the mid left kidney is not causing obstruction and not the source of pain Likely she passed a stone and is having residual pain and symptoms. KUB this am to check Urine culture in progress Patient may eat-Regular diet ordered Discussed findings with patient and attending RN. Dr. Jc to round on patient later today LINDA JC MD 07/14/19 1626: UROLOGY CONSULT Assessment/Plan Assessment/Plan uti, recommend cx specific abx. 2mm left renal stone, not obstructing. Stone diet instructions. fu as OP for stone prevention strategies. ETHAN THOMAS APRN Jul 14, 2019 09:50 LINDA JC MD Jul 14, 2019 16:26
[2019-07-14] MEDS: HYDROcodone/APAP 5/325MG 1 TAB TABLET PO PRN ×2 (09:52→15:44)
--- NOTE | 2019-07-14 09:57 | RAD ---
Abdominal radiograph 07/14/2019 8:23 AM Indication: Left renal calculus.. Comparison: None. Technique: Frontal supine radiographs of the abdomen were obtained. Findings: There is no free intraperitoneal air. There is no portal venous gas. No pneumatosis coli. There are no dilated loops of small or large bowel. There are no differential air-fluid levels. There is no organomegaly. No suspicious calcifications are identified along the expected course of the genitourinary tract. Left renal calculus is not visualized by radiograph. No suspicious osseous abnormality is identified. IMPRESSION Nonobstructive bowel gas pattern. Left renal calculus is not visualized by radiograph. Electronically signed by: Luna Cox MD (07/14/2019 9:54 AM) [id number]
[2019-07-14] MEDS ORDERED: POTASSIUM CHLORIDE 20 MEQ TABLET.ER. PO ONE (10:45)
[2019-07-14 11:00] VITALS: BP 132/65
[2019-07-14] MEDS: ACETAMINOPHEN 500 MG TABLET PO PRN ×2 (12:33→21:05)
--- NOTE | 2019-07-14 14:36 | PDOC ---
PROGRESS NOTES Chief Complaint Chief Complaint UTI with 2 mm non obstructing stone with left flank pain Trichomoniasis Positive cannabinoids UDS Sepsis pyelonephritis tobacco use disorder Constipation History of Present Illness History of Present Illness cont abx pain better up as able try to DC soon Vitals Vitals Vital Signs Date Time Temp Pulse Resp B/P (MAP) Pulse Ox O2 Delivery O2 Flow Rate FiO2 07/14/19 11:00 98.7 74 14 132/65 (87) 100 Room Air 98.7 Physical Exam General: Alert, Oriented X3, Cooperative, No acute distress Abdomen: Soft, Other (left flank pain and LLQ tendereness) Extremities: No clubbing, No cyanosis, No edema, Normal pulses, No tenderness/swelling Skin: No rashes, No breakdown, No significant lesion Labs LABS Laboratory Tests Test 07/13/19 16:30 07/13/19 17:56 07/14/19 03:40 Urine Collection Type Void Urine Color Yellow Urine Clarity Turbid Urine pH 7.0 Urine Specific [place] 1.020 Urine Protein 100 mg/dL (NEG-TRACE) Urine Glucose (UA) Negative mg/dL (NEG) Urine Ketones (Stick) Negative mg/dL (NEG) Urine Blood Trace (NEG) Urine Nitrite Positive (NEG) Urine Bilirubin Negative (NEG) Urine Urobilinogen Dipstick 1.0 mg/dL (0.2 mg/dL) Urine Leukocyte Esterase Large (NEG) Urine RBC 1-2 /HPF (0-2) Urine WBC Tntc /HPF (0-4) Urine Squamous Epithelial Cells Many /LPF Urine Bacteria Many /HPF (0-FEW) Urine Mucus Marked /LPF Urine Trichomonas Present Bedside Urine HCG, Qualitative Hcg negative (Negative) Urine Opiates Screen Neg (NEG) Urine Methadone Screen Neg (NEG) Urine Barbiturates Neg (NEG) Urine Phencyclidine Screen Neg (NEG) Urine Amphetamine/Methamphetamine Neg (NEG) Urine Benzodiazepines Screen Neg (NEG) Urine Cocaine Screen Neg (NEG) Urine Cannabinoids Screen Pos (NEG) Urine Ethyl Alcohol Neg (NEG) White Blood Count 12.6 x10^3/uL (4.0-11.0) 12.4 x10^3/uL (4.0-11.0) Red Blood Count 4.13 x10^6/uL (3.50-5.40) 3.90 x10^6/uL (3.50-5.40) Hemoglobin 12.9 g/dL (12.0-15.5) 12.2 g/dL (12.0-15.5) Hematocrit 37.8 % (36.0-47.0) 35.8 % (36.0-47.0) Mean Corpuscular Volume 91 fL (79-100) 92 fL (79-100) Mean Corpuscular Hemoglobin 31 pg (25-35) 31 pg (25-35) Mean Corpuscular Hemoglobin Concent 34 g/dL (31-37) 34 g/dL (31-37) Red Cell Distribution Width 12.9 % (11.5-14.5) 13.0 % (11.5-14.5) Platelet Count 243 x10^3/uL (140-400) 222 x10^3/uL (140-400) Neutrophils (%) (Auto) 69 % (31-73) 79 % (31-73) Lymphocytes (%) (Auto) 20 % (24-48) 9 % (24-48) Monocytes (%) (Auto) 11 % (0-9) 12 % (0-9) Eosinophils (%) (Auto) 0 % (0-3) 0 % (0-3) Basophils (%) (Auto) 0 % (0-3) 0 % (0-3) Neutrophils # (Auto) 8.7 x10^3/uL (1.8-7.7) 9.8 x10^3/uL (1.8-7.7) Lymphocytes # (Auto) 2.5 x10^3/uL (1.0-4.8) 1.1 x10^3/uL (1.0-4.8) Monocytes # (Auto) 1.4 x10^3/uL (0.0-1.1) 1.5 x10^3/uL (0.0-1.1) Eosinophils # (Auto) 0.0 x10^3/uL (0.0-0.7) 0.0 x10^3/uL (0.0-0.7) Basophils # (Auto) 0.0 x10^3/uL (0.0-0.2) 0.0 x10^3/uL (0.0-0.2) Sodium Level 136 mmol/L (136-145) 139 mmol/L (136-145) Potassium Level 3.8 mmol/L (3.5-5.1) 3.3 mmol/L (3.5-5.1) Chloride Level 100 mmol/L (98-107) 105 mmol/L (98-107) Carbon Dioxide Level 28 mmol/L (21-32) 24 mmol/L (21-32) Anion Gap 8 (6-14) 10 (6-14) Blood Urea Nitrogen 10 mg/dL (7-20) 6 mg/dL (7-20) Creatinine 0.9 mg/dL (0.6-1.0) 0.8 mg/dL (0.6-1.0) Estimated GFR (Cockcroft-Gault) 90.2 103.3 BUN/Creatinine Ratio 11 (6-20) Glucose Level 90 mg/dL (70-99) 116 mg/dL (70-99) Lactic Acid Level 1.4 mmol/L (0.4-2.0) Calcium Level 9.1 mg/dL (8.5-10.1) 8.5 mg/dL (8.5-10.1) Total Bilirubin 0.4 mg/dL (0.2-1.0) Aspartate Amino Transf (AST/SGOT) 23 U/L (15-37) Alanine Aminotransferase (ALT/SGPT) 29 U/L (14-59) Alkaline Phosphatase 95 U/L (46-116) Total Protein 7.6 g/dL (6.4-8.2) Albumin 3.3 g/dL (3.4-5.0) Albumin/Globulin Ratio 0.8 (1.0-1.7) Lipase 50 U/L (73-393) Ethyl Alcohol Level < 10 mg/dL (0-10) Erythrocyte Sedimentation Rate 33 (0-25) Assessment and Plan Assessmemt and Plan Problems Medical Problems: (1) Fever Status: Acute (2) Pyelonephritis Status: Acute (3) Sepsis Status: Acute (4) Trichomonas vaginitis Status: Acute Comment Review of Relevant I have reviewed the following items gino (where applicable) has been applied. Labs Laboratory Tests Test 07/13/19 16:30 07/13/19 17:56 07/14/19 03:40 Urine Collection Type Void Urine Color Yellow Urine Clarity Turbid Urine pH 7.0 Urine Specific [place] 1.020 Urine Protein 100 mg/dL (NEG-TRACE) Urine Glucose (UA) Negative mg/dL (NEG) Urine Ketones (Stick) Negative mg/dL (NEG) Urine Blood Trace (NEG) Urine Nitrite Positive (NEG) Urine Bilirubin Negative (NEG) Urine Urobilinogen Dipstick 1.0 mg/dL (0.2 mg/dL) Urine Leukocyte Esterase Large (NEG) Urine RBC 1-2 /HPF (0-2) Urine WBC Tntc /HPF (0-4) Urine Squamous Epithelial Cells Many /LPF Urine Bacteria Many /HPF (0-FEW) Urine Mucus Marked /LPF Urine Trichomonas Present Bedside Urine HCG, Qualitative Hcg negative (Negative) Urine Opiates Screen Neg (NEG) Urine Methadone Screen Neg (NEG) Urine Barbiturates Neg (NEG) Urine Phencyclidine Screen Neg (NEG) Urine Amphetamine/Methamphetamine Neg (NEG) Urine Benzodiazepines Screen Neg (NEG) Urine Cocaine Screen Neg (NEG) Urine Cannabinoids Screen Pos (NEG) Urine Ethyl Alcohol Neg (NEG) White Blood Count 12.6 x10^3/uL (4.0-11.0) 12.4 x10^3/uL (4.0-11.0) Red Blood Count 4.13 x10^6/uL (3.50-5.40) 3.90 x10^6/uL (3.50-5.40) Hemoglobin 12.9 g/dL (12.0-15.5) 12.2 g/dL (12.0-15.5) Hematocrit 37.8 % (36.0-47.0) 35.8 % (36.0-47.0) Mean Corpuscular Volume 91 fL (79-100) 92 fL (79-100) Mean Corpuscular Hemoglobin 31 pg (25-35) 31 pg (25-35) Mean Corpuscular Hemoglobin Concent 34 g/dL (31-37) 34 g/dL (31-37) Red Cell Distribution Width 12.9 % (11.5-14.5) 13.0 % (11.5-14.5) Platelet Count 243 x10^3/uL (140-400) 222 x10^3/uL (140-400) Neutrophils (%) (Auto) 69 % (31-73) 79 % (31-73) Lymphocytes (%) (Auto) 20 % (24-48) 9 % (24-48) Monocytes (%) (Auto) 11 % (0-9) 12 % (0-9) Eosinophils (%) (Auto) 0 % (0-3) 0 % (0-3) Basophils (%) (Auto) 0 % (0-3) 0 % (0-3) Neutrophils # (Auto) 8.7 x10^3/uL (1.8-7.7) 9.8 x10^3/uL (1.8-7.7) Lymphocytes # (Auto) 2.5 x10^3/uL (1.0-4.8) 1.1 x10^3/uL (1.0-4.8) Monocytes # (Auto) 1.4 x10^3/uL (0.0-1.1) 1.5 x10^3/uL (0.0-1.1) Eosinophils # (Auto) 0.0 x10^3/uL (0.0-0.7) 0.0 x10^3/uL (0.0-0.7) Basophils # (Auto) 0.0 x10^3/uL (0.0-0.2) 0.0 x10^3/uL (0.0-0.2) Sodium Level 136 mmol/L (136-145) 139 mmol/L (136-145) Potassium Level 3.8 mmol/L (3.5-5.1) 3.3 mmol/L (3.5-5.1) Chloride Level 100 mmol/L (98-107) 105 mmol/L (98-107) Carbon Dioxide Level 28 mmol/L (21-32) 24 mmol/L (21-32) Anion Gap 8 (6-14) 10 (6-14) Blood Urea Nitrogen 10 mg/dL (7-20) 6 mg/dL (7-20) Creatinine 0.9 mg/dL (0.6-1.0) 0.8 mg/dL (0.6-1.0) Estimated GFR (Cockcroft-Gault) 90.2 103.3 BUN/Creatinine Ratio 11 (6-20) Glucose Level 90 mg/dL (70-99) 116 mg/dL (70-99) Lactic Acid Level 1.4 mmol/L (0.4-2.0) Calcium Level 9.1 mg/dL (8.5-10.1) 8.5 mg/dL (8.5-10.1) Total Bilirubin 0.4 mg/dL (0.2-1.0) Aspartate Amino Transf (AST/SGOT) 23 U/L (15-37) Alanine Aminotransferase (ALT/SGPT) 29 U/L (14-59) Alkaline Phosphatase 95 U/L (46-116) Total Protein 7.6 g/dL (6.4-8.2) Albumin 3.3 g/dL (3.4-5.0) Albumin/Globulin Ratio 0.8 (1.0-1.7) Lipase 50 U/L (73-393) Ethyl Alcohol Level < 10 mg/dL (0-10) Erythrocyte Sedimentation Rate 33 (0-25) Laboratory Tests Test 07/13/19 16:30 07/13/19 17:56 07/14/19 03:40 Urine Collection Type Void Urine Color Yellow Urine Clarity Turbid Urine pH 7.0 Urine Specific [place] 1.020 Urine Protein 100 mg/dL (NEG-TRACE) Urine Glucose (UA) Negative mg/dL (NEG) Urine Ketones (Stick) Negative mg/dL (NEG) Urine Blood Trace (NEG) Urine Nitrite Positive (NEG) Urine Bilirubin Negative (NEG) Urine Urobilinogen Dipstick 1.0 mg/dL (0.2 mg/dL) Urine Leukocyte Esterase Large (NEG) Urine RBC 1-2 /HPF (0-2) Urine WBC Tntc /HPF (0-4) Urine Squamous Epithelial Cells Many /LPF Urine Bacteria Many /HPF (0-FEW) Urine Mucus Marked /LPF Urine Trichomonas Present Bedside Urine HCG, Qualitative Hcg negative (Negative) Urine Opiates Screen Neg (NEG) Urine Methadone Screen Neg (NEG) Urine Barbiturates Neg (NEG) Urine Phencyclidine Screen Neg (NEG) Urine Amphetamine/Methamphetamine Neg (NEG) Urine Benzodiazepines Screen Neg (NEG) Urine Cocaine Screen Neg (NEG) Urine Cannabinoids Screen Pos (NEG) Urine Ethyl Alcohol Neg (NEG) White Blood Count 12.6 x10^3/uL (4.0-11.0) 12.4 x10^3/uL (4.0-11.0) Red Blood Count 4.13 x10^6/uL (3.50-5.40) 3.90 x10^6/uL (3.50-5.40) Hemoglobin 12.9 g/dL (12.0-15.5) 12.2 g/dL (12.0-15.5) Hematocrit 37.8 % (36.0-47.0) 35.8 % (36.0-47.0) Mean Corpuscular Volume 91 fL (79-100) 92 fL (79-100) Mean Corpuscular Hemoglobin 31 pg (25-35) 31 pg (25-35) Mean Corpuscular Hemoglobin Concent 34 g/dL (31-37) 34 g/dL (31-37) Red Cell Distribution Width 12.9 % (11.5-14.5) 13.0 % (11.5-14.5) Platelet Count 243 x10^3/uL (140-400) 222 x10^3/uL (140-400) Neutrophils (%) (Auto) 69 % (31-73) 79 % (31-73) Lymphocytes (%) (Auto) 20 % (24-48) 9 % (24-48) Monocytes (%) (Auto) 11 % (0-9) 12 % (0-9) Eosinophils (%) (Auto) 0 % (0-3) 0 % (0-3) Basophils (%) (Auto) 0 % (0-3) 0 % (0-3) Neutrophils # (Auto) 8.7 x10^3/uL (1.8-7.7) 9.8 x10^3/uL (1.8-7.7) Lymphocytes # (Auto) 2.5 x10^3/uL (1.0-4.8) 1.1 x10^3/uL (1.0-4.8) Monocytes # (Auto) 1.4 x10^3/uL (0.0-1.1) 1.5 x10^3/uL (0.0-1.1) Eosinophils # (Auto) 0.0 x10^3/uL (0.0-0.7) 0.0 x10^3/uL (0.0-0.7) Basophils # (Auto) 0.0 x10^3/uL (0.0-0.2) 0.0 x10^3/uL (0.0-0.2) Sodium Level 136 mmol/L (136-145) 139 mmol/L (136-145) Potassium Level 3.8 mmol/L (3.5-5.1) 3.3 mmol/L (3.5-5.1) Chloride Level 100 mmol/L (98-107) 105 mmol/L (98-107) Carbon Dioxide Level 28 mmol/L (21-32) 24 mmol/L (21-32) Anion Gap 8 (6-14) 10 (6-14) Blood Urea Nitrogen 10 mg/dL (7-20) 6 mg/dL (7-20) Creatinine 0.9 mg/dL (0.6-1.0) 0.8 mg/dL (0.6-1.0) Estimated GFR (Cockcroft-Gault) 90.2 103.3 BUN/Creatinine Ratio 11 (6-20) Glucose Level 90 mg/dL (70-99) 116 mg/dL (70-99) Lactic Acid Level 1.4 mmol/L (0.4-2.0) Calcium Level 9.1 mg/dL (8.5-10.1) 8.5 mg/dL (8.5-10.1) Total Bilirubin 0.4 mg/dL (0.2-1.0) Aspartate Amino Transf (AST/SGOT) 23 U/L (15-37) Alanine Aminotransferase (ALT/SGPT) 29 U/L (14-59) Alkaline Phosphatase 95 U/L (46-116) Total Protein 7.6 g/dL (6.4-8.2) Albumin 3.3 g/dL (3.4-5.0) Albumin/Globulin Ratio 0.8 (1.0-1.7) Lipase 50 U/L (73-393) Ethyl Alcohol Level < 10 mg/dL (0-10) Erythrocyte Sedimentation Rate 33 (0-25) Medications Current Medications Metronidazole (Flagyl) 2,000 mg 1X ONCE PO Last administered on 07/13/19at 18:21; Start 07/13/19 at 18:00; Stop 07/13/19 at 18:01; Status DC Ceftriaxone Sodium (Rocephin Im) 250 mg 1X ONCE IM ; Start 07/13/19 at 18:00; Stop 07/13/19 at 18:01; Status Cancel Azithromycin (Zithromax) 1,000 mg 1X ONCE PO Last administered on 07/13/19 18:21; Start 07/13/19 at 18:00; Stop 07/13/19 at 18:01; Status DC Sodium Chloride 1,000 ml @ 1,000 mls/hr 1X ONCE IV Last administered on 07/13/19 18:21; Start 07/13/19 at 18:00; Stop 07/13/19 at 18:59; Status DC Sodium Chloride 1,000 ml @ 1,000 mls/hr 1X ONCE IV Last administered on 07/13/19 21:06; Start 07/13/19 at 18:00; Stop 07/13/19 at 18:59; Status DC Acetaminophen (Tylenol) 1,000 mg 1X ONCE PO Last administered on 07/13/19 18:21; Start 07/13/19 at 18:00; Stop 07/13/19 at 18:04; Status DC Ketorolac Tromethamine (Toradol 30mg Vial) 30 mg 1X ONCE IV Last administered on 07/13/19 18:21; Start 07/13/19 at 18:00; Stop 07/13/19 at 18:04; Status DC Ceftriaxone Sodium (Rocephin) 1 gm 1X ONCE IVP Last administered on 07/13/19 18:21; Start 07/13/19 at 18:00; Stop 07/13/19 at 18:04; Status DC Iohexol (Omnipaque 300 Mg/ml) 75 ml 1X ONCE IV Last administered on 07/13/19at 19:16; Start 07/13/19 at 19:15; Stop 07/13/19 at 19:16; Status DC Info (CONTRAST GIVEN -- Rx MONITORING) 1 each PRN DAILY PRN MC SEE COMMENTS; Start 07/13/19 at 19:15; Stop 07/15/19 at 19:14 Levofloxacin/ Dextrose (Levaquin Per Pharmacy) 1 each PRN DAILY PRN MC SEE COMMENTS; Start 07/13/19 at 20:15 Ketorolac Tromethamine (Toradol 15mg Vial) 15 mg PRN Q6HRS PRN IV PAIN; Start 07/13/19 at 20:15; Stop 07/13/19 at 20:30; Status DC Acetaminophen/ Hydrocodone Bitart (Lortab 5/325) 1 tab PRN Q4HRS PRN PO MODERATE PAIN, SEVERE PAIN Last administered on 07/14/19at 09:52; Start 07/13/19 at 20:15 Sodium Chloride 1,000 ml @ 125 mls/hr Q8H IV Last administered on 07/14/19at 12:35; Start 07/13/19 at 21:00 Zolpidem Tartrate (Ambien) 5 mg PRN QHS PRN PO INSOMNIA; Start 07/13/19 at 20:15 Acetaminophen (Tylenol) 500 mg PRN Q6HRS PRN PO MILD PAIN / TEMP Last administered on 07/14/19at 12:35; Start 07/13/19 at 20:15 Ondansetron HCl (Zofran) 4 mg PRN Q6HRS PRN IV NAUSEA/VOMITING Last administered on 07/14/19at 12:35; Start 07/13/19 at 20:15 Ondansetron HCl (Zofran) 4 mg PRN Q8HRS PRN IV NAUSEA/VOMITING; Start 07/13/19 at 20:15; Stop 07/14/19 at 20:14; Status UNV Acetaminophen (Tylenol) 650 mg PRN Q4HRS PRN PO FEVER; Start 07/13/19 at 20:15; Stop 07/14/19 at 20:14; Status UNV Sodium Chloride 1,000 ml @ 100 mls/hr 1X ONCE IV ; Start 07/13/19 at 20:15; Stop 07/14/19 at 06:14; Status UNV Magnesium Citrate (Citroma) 296 ml 1X ONCE PO ; Start 07/13/19 at 20:30; Stop 07/13/19 at 20:31; Status DC Bisacodyl (Dulcolax Tab) 10 mg 1X STAT PO Last administered on 07/13/19at 21:06; Start 07/13/19 at 20:08; Stop 07/13/19 at 20:17; Status DC Levofloxacin/ Dextrose 100 ml @ 100 mls/hr Q24H IV Last administered on 07/13/19at 22:36; Start 07/13/19 at 21:00 Ketorolac Tromethamine (Toradol 30mg Vial) 30 mg PRN Q6HRS PRN IV PAIN Last administered on 07/14/19at 05:51; Start 07/13/19 at 20:30; Stop 07/18/19 at 20:29 Docusate Sodium (Colace) 100 mg DAILY PO ; Start 07/14/19 at 09:00 Polyethylene Glycol (miraLAX PACKET) 17 gm DAILY PO ; Start 07/14/19 at 09:00 Magnesium Hydroxide (Milk Of Magnesia) 2,400 mg PRN DAILY PRN PO CONSTIPATION; Start 07/13/19 at 20:30 Tamsulosin HCl (Flomax) 0.4 mg QHS PO Last administered on 07/13/19at 22:36; Start 07/13/19 at 21:00 Ceftriaxone Sodium (Rocephin) 1 gm Q24H IVP ; Start 07/14/19 at 18:00; Status UNV Potassium Chloride (Klor-Con) 40 meq 1X ONCE PO Last administered on 07/14/19at 10:43; Start 07/14/19 at 10:45; Stop 07/14/19 at 10:46; Status DC Active Scripts Active Naprosyn (Naproxen) 500 Mg Tablet 1 Tab PO BID Vitals/I & O Vital Sign - Last 24 Hours 07/13/19 07/13/19 07/13/19 07/13/19 16:29 18:00 21:45 22:15 Temp 102.9 99.1 102.9 99.1 Pulse 111 102 87 Resp 20 18 18 B/P (MAP) 142/90 (107) 115/77 (90) 113/53 (73) Pulse Ox 100 90 97 O2 Delivery Room Air Room Air Room Air Room Air 07/13/19 07/14/19 07/14/19 07/14/19 23:00 03:00 07:00 07:20 Temp 98.8 98.4 99.2 98.8 98.4 99.2 Pulse 90 76 74 Resp 18 18 14 B/P (MAP) 135/82 (99) 108/63 (78) 109/57 (74) Pulse Ox 98 99 96 O2 Delivery Room Air Room Air Room Air Room Air 07/14/19 07/14/19 07/14/19 09:52 10:44 11:00 Temp 98.7 98.7 Pulse 74 Resp 14 B/P (MAP) 132/65 (87) Pulse Ox 96 96 100 O2 Delivery Room Air Room Air Room Air Intake and Output 07/13/19 07/13/19 07/14/19 15:00 23:00 07:00 Intake Total 2000 ml 300 ml Balance 2000 ml 300 ml DEVYN CAMACHO MD Jul 14, 2019 14:36
[2019-07-14 15:00] VITALS: BP 115/61
[2019-07-14] MEDS ORDERED: cefTRIAXone IV Push 1 GM VIAL. IVP SCH (18:00)
[2019-07-14 19:00] VITALS: BP 100/48
[2019-07-14] MEDS: TAMSULOSIN 0.4 MG CAP.ER.24H. PO SCH (21:06)
[2019-07-14 23:00] VITALS: BP 106/67
[2019-07-15] MEDS: ONDANSETRON PF 4 MG/2 ML VIAL. IV PRN (00:52)
[2019-07-15 03:00] VITALS: BP 110/62
[2019-07-15] MEDS: IV NORMAL SALINE 1000ML BAG 1,000 ML IV SCH ×2 (05:00→08:07)
[2019-07-15 07:00] VITALS: BP 124/73
[2019-07-15] MEDS: DOCUSATE SODIUM 100 MG CAPSULE. PO SCH (08:05)
[2019-07-15] MEDS: POLYETHYLENE GLYCOL 3350 17 GM PACKET. PO SCH (08:05)
--- NOTE | 2019-07-15 08:33 | PDOC ---
SUBJECTIVE Subjective Pain is improved down to 2/10. Nauseas, no vomiting. No dysuria. OBJECTIVE Objective Physical Exam: General appearance: Alert and Oriented Head: Normocephalic, without obvious abnormality Eyes: conjunctivae/corneas clear. PERRL, EOM's intact. Fundi benign Back: no CVA pain bilateral on testing Lungs: Regular respirations, non labored breathing Abdomen: soft, generalized tenderness bilateral lower quadrants 2/10 Pelvic: deferred Vital Signs Vital Signs Date Time Temp Pulse Resp B/P (MAP) Pulse Ox O2 Delivery O2 Flow Rate FiO2 07/15/19 07:27 Room Air 07/15/19 07:00 98.4 72 16 124/73 (90) 100 Room Air 98.4 07/15/19 03:00 98.0 81 18 110/62 (78) 97 Room Air 98.0 07/14/19 23:00 97.9 75 18 106/67 (80) 94 Room Air 97.9 07/14/19 19:45 Room Air 07/14/19 19:00 98.1 88 18 100/48 (65) 98 Room Air 98.1 07/14/19 16:43 100 Room Air 07/14/19 15:44 100 Room Air 07/14/19 15:00 99.0 75 14 115/61 (79) 100 Room Air 99.0 07/14/19 11:00 98.7 74 14 132/65 (87) 100 Room Air 98.7 07/14/19 10:44 96 Room Air 07/14/19 09:52 96 Room Air I & O Intake and Output 07/15/19 06:59 Intake Total 2220 ml Balance 2220 ml Intake Oral 120 ml IV Total 2100 ml # Voids 4 PHYSICAL EXAM Physical Exam Physical Exam: General appearance: Alert and Oriented Head: Normocephalic, without obvious abnormality Eyes: conjunctivae/corneas clear. PERRL, EOM's intact. Fundi benign Back: no CVA pain bilateral on testing Lungs: Regular respirations, non labored breathing Abdomen: soft, generalized tenderness bilateral lower quadrants 2/10 Pelvic: deferred ASSESSMENT/PLAN Assessment/Plan Social work consult ordered for help with insurance since she will need outpatient care/preventative care for kidney stones. Pain improved since yesterday. She still has nausea, not vomiting Await urine culture results, blood cultures negative so far. Continue antibiotics, pain and nausea control. A follow up appointment has been secured for patient with Dr. Jc of [facility] [place] on 08/04/19 at 2 pm. Appointment card and new patient paperwork given to patient. All questions answered. Will sign off at this time, but please call with questions or changes in patient condition. ETHAN THOMAS APRN Jul 15, 2019 08:33
[2019-07-15] MEDS: ACETAMINOPHEN 500 MG TABLET PO PRN (09:44)
[2019-07-15 11:00] VITALS: BP 106/79
[2019-07-15] MEDS ORDERED: TAMS0.4C97 PO (11:24)
[2019-07-15] MEDS ORDERED: CIPR250T30 PO (11:24)
[2019-07-15] MEDS ORDERED: CIPR500T94 PO (11:28)
--- NOTE | 2019-07-15 11:31 | PDOC3 ---
Discharge Summary Visit Information Date of Admission: Jul 13, 2019 Date of Discharge: Jul 15, 2019 Final Diagnosis UTI with 2 mm non obstructing stone with left flank pain Trichomoniasis Sepsis pyelonephritis tobacco use disorder Constipation Problems Medical Problems: (1) Fever Status: Acute (2) Pyelonephritis Status: Acute (3) Sepsis Status: Acute (4) Trichomonas vaginitis Status: Acute Brief Hospital Course Allergies Allergies Coded Allergies Type Severity Reaction Last Updated Verified No Known Drug Allergies 07/30/14 No Vital Signs Vital Signs Date Time Temp Pulse Resp B/P (MAP) Pulse Ox O2 Delivery O2 Flow Rate FiO2 07/15/19 07:27 Room Air 07/15/19 07:00 98.4 72 16 124/73 (90) 100 98.4 Lab Results Laboratory Tests Test 07/13/19 16:30 07/13/19 17:56 07/14/19 03:40 Urine Collection Type Void Urine Color Yellow Urine Clarity Turbid Urine pH 7.0 Urine Specific [place] 1.020 Urine Protein 100 mg/dL (NEG-TRACE) Urine Glucose (UA) Negative mg/dL (NEG) Urine Ketones (Stick) Negative mg/dL (NEG) Urine Blood Trace (NEG) Urine Nitrite Positive (NEG) Urine Bilirubin Negative (NEG) Urine Urobilinogen Dipstick 1.0 mg/dL (0.2 mg/dL) Urine Leukocyte Esterase Large (NEG) Urine RBC 1-2 /HPF (0-2) Urine WBC Tntc /HPF (0-4) Urine Squamous Epithelial Cells Many /LPF Urine Bacteria Many /HPF (0-FEW) Urine Mucus Marked /LPF Urine Trichomonas Present Bedside Urine HCG, Qualitative Hcg negative (Negative) Urine Opiates Screen Neg (NEG) Urine Methadone Screen Neg (NEG) Urine Barbiturates Neg (NEG) Urine Phencyclidine Screen Neg (NEG) Urine Amphetamine/Methamphetamine Neg (NEG) Urine Benzodiazepines Screen Neg (NEG) Urine Cocaine Screen Neg (NEG) Urine Cannabinoids Screen Pos (NEG) Urine Ethyl Alcohol Neg (NEG) White Blood Count 12.6 x10^3/uL (4.0-11.0) 12.4 x10^3/uL (4.0-11.0) Red Blood Count 4.13 x10^6/uL (3.50-5.40) 3.90 x10^6/uL (3.50-5.40) Hemoglobin 12.9 g/dL (12.0-15.5) 12.2 g/dL (12.0-15.5) Hematocrit 37.8 % (36.0-47.0) 35.8 % (36.0-47.0) Mean Corpuscular Volume 91 fL (79-100) 92 fL (79-100) Mean Corpuscular Hemoglobin 31 pg (25-35) 31 pg (25-35) Mean Corpuscular Hemoglobin Concent 34 g/dL (31-37) 34 g/dL (31-37) Red Cell Distribution Width 12.9 % (11.5-14.5) 13.0 % (11.5-14.5) Platelet Count 243 x10^3/uL (140-400) 222 x10^3/uL (140-400) Neutrophils (%) (Auto) 69 % (31-73) 79 % (31-73) Lymphocytes (%) (Auto) 20 % (24-48) 9 % (24-48) Monocytes (%) (Auto) 11 % (0-9) 12 % (0-9) Eosinophils (%) (Auto) 0 % (0-3) 0 % (0-3) Basophils (%) (Auto) 0 % (0-3) 0 % (0-3) Neutrophils # (Auto) 8.7 x10^3/uL (1.8-7.7) 9.8 x10^3/uL (1.8-7.7) Lymphocytes # (Auto) 2.5 x10^3/uL (1.0-4.8) 1.1 x10^3/uL (1.0-4.8) Monocytes # (Auto) 1.4 x10^3/uL (0.0-1.1) 1.5 x10^3/uL (0.0-1.1) Eosinophils # (Auto) 0.0 x10^3/uL (0.0-0.7) 0.0 x10^3/uL (0.0-0.7) Basophils # (Auto) 0.0 x10^3/uL (0.0-0.2) 0.0 x10^3/uL (0.0-0.2) Sodium Level 136 mmol/L (136-145) 139 mmol/L (136-145) Potassium Level 3.8 mmol/L (3.5-5.1) 3.3 mmol/L (3.5-5.1) Chloride Level 100 mmol/L (98-107) 105 mmol/L (98-107) Carbon Dioxide Level 28 mmol/L (21-32) 24 mmol/L (21-32) Anion Gap 8 (6-14) 10 (6-14) Blood Urea Nitrogen 10 mg/dL (7-20) 6 mg/dL (7-20) Creatinine 0.9 mg/dL (0.6-1.0) 0.8 mg/dL (0.6-1.0) Estimated GFR (Cockcroft-Gault) 90.2 103.3 BUN/Creatinine Ratio 11 (6-20) Glucose Level 90 mg/dL (70-99) 116 mg/dL (70-99) Lactic Acid Level 1.4 mmol/L (0.4-2.0) Calcium Level 9.1 mg/dL (8.5-10.1) 8.5 mg/dL (8.5-10.1) Total Bilirubin 0.4 mg/dL (0.2-1.0) Aspartate Amino Transf (AST/SGOT) 23 U/L (15-37) Alanine Aminotransferase (ALT/SGPT) 29 U/L (14-59) Alkaline Phosphatase 95 U/L (46-116) Total Protein 7.6 g/dL (6.4-8.2) Albumin 3.3 g/dL (3.4-5.0) Albumin/Globulin Ratio 0.8 (1.0-1.7) Lipase 50 U/L (73-393) Ethyl Alcohol Level < 10 mg/dL (0-10) Erythrocyte Sedimentation Rate 33 (0-25) Brief Hospital Course Ms. Peace is a 28 old admit with sepsis, pain, small stone that passed, then UTI, pyelo, ongoing pain and sepsis, sx much improved on levaquin here, will DC on cipro, she was very concerned about med cost, $4 [facility] Discharge Information Condition at Discharge: Improved Follow Up: Weeks Disposition/Orders: D/C to Home Scheduled Ciprofloxacin Hcl (Cipro) 500 Mg Tablet, 1 TAB PO BID for pyelonephritis, #14 Prescribed by: DEVYN CAMACHO on 07/15/19 1128 Tamsulosin Hcl (Flomax) 0.4 Mg Cap.er.24h, 0.4 MG PO QHS for help pass kidney stones, #30 Prescribed by: DEVYN CAMACHO on 07/15/19 1124 Discontinued Medications Naproxen (Naprosyn) 500 Mg Tablet, 1 TAB PO BID for pain, #20 Prescribed by: TALAT VARGAS MD on 05/01/19 0727 Last Action: Reviewed on 07/13/192008 by DIANN SCALES Patient Instructions Patient Instructions > 30 min face to face discussed x2 today DEVYN CAMACHO MD Jul 15, 2019 11:31
--- NOTE | 2019-07-15 12:15 | NUR ---
Discharge Note: RITO COFFEY S[facility] Discharge instructions and discharge home medications reviewed with Patient and a copy given. All questions have been answered and understanding verbalized. The following instructions and handouts were given: information about UTI and sepsis, follow up appointments, etc. Discontinued lines and drains: IV line in right AC removed, catheter tip intact. Patient discharged to home with self care with friend, patient ambulated to discharge vehicle.
== END 2019-07-15 12:15 | disposition home or self-care (01) | DRG 872 ==
LOC: ER 15:59 → 4 NORTH 20:00
PROVIDERS: ADMIT Internal Medicine; ATTEND Internal Medicine
DX: A41.9 Sepsis, unspecified organism (principal); N12 Tubulo-interstitial nephritis, not specified as acute or chronic; A59.01 Trichomonal vulvovaginitis; F17.210 Nicotine dependence, cigarettes, uncomplicated; K59.00 Constipation, unspecified; N20.0 Calculus of kidney; Z87.442 Personal history of urinary calculi
CPT/HCPCS: 36415; 74018; 74021; 74177; 80048; 80053; 80307; 81001; 81025; 83605; 83690; 85025; 85651; 87040; 87086; 87186; 96361; 96374; G0480; J0696; J1885; J1956; J2405; J7030; Q0144; Q9967; 99285-25; G0378

== ENCOUNTER 2021-05-21 09:00 | Observation (INO) | payer OTHER ==
[~2021-05-21 09:00] MED LIST changes: +CIPR250T30 PO; +CIPR500T94 PO; +TAMS0.4C97 PO
[2021-05-21] MEDS ORDERED: IV RINGERS,LACTATED 1000ML 1,000 ML IV SCH (10:00)
[2021-05-21 10:58] LABS: BILIRUBIN,URINE NEGATIVE (NEG); CLARITY,URINE CLEAR; COLOR,URINE YELLOW; NITRITE,URINE NEGATIVE (NEG); PROTEIN,URINE NEGATIVE (NEG-TRACE)
[2021-05-21 11:15] LABS: BACTERIA,URINE MODERATE /HPF (0-FEW); RBC,URINE 0 /HPF (0-2)
[2021-05-21 12:48] LABS: AMNIO PT NEGATIVE
== END 2021-05-21 13:35 | disposition home or self-care (01) ==
LOC: 3 SO LND 09:00
PROVIDERS: ADMIT Obstetrics & Gynecology; ATTEND Obstetrics & Gynecology
DX: O62.9 Abnormality of forces of labor, unspecified (principal); Z3A.37 37 weeks gestation of pregnancy; Z79.899 Other long term (current) drug therapy
CPT/HCPCS: 36415; 59025; 81001; 84112; 87086; G0378; G0379

== ENCOUNTER 2021-06-10 09:44 | Observation (INO) | payer OTHER ==
[~2021-06-10] VITALS: Ht 163.8 cm; Wt 94.5 kg
[2021-06-10] MEDS ORDERED: IV RINGERS,LACTATED 1000ML 1,000 ML IV SCH (10:30)
[2021-06-10 10:54] LABS: BILIRUBIN,URINE NEGATIVE (NEG); CLARITY,URINE CLEAR; COLOR,URINE YELLOW; NITRITE,URINE NEGATIVE (NEG); PROTEIN,URINE NEGATIVE (NEG-TRACE)
[2021-06-10 11:40] LABS: BACTERIA,URINE FEW /HPF (0-FEW); RBC,URINE OCC /HPF (0-2); WBC,URINE OCC /HPF (0-4)
[2021-06-10] MEDS ORDERED: CALCIUM CARBONATE 500 MG TAB.CHEW PO PRN (12:00)
== END 2021-06-10 13:33 | disposition home or self-care (01) ==
LOC: 3 SO LND 09:44
PROVIDERS: ADMIT Obstetrics & Gynecology; ATTEND Obstetrics & Gynecology
DX: O62.9 Abnormality of forces of labor, unspecified (principal); Z20.822 Contact with and (suspected) exposure to COVID-19; Z3A.39 39 weeks gestation of pregnancy; Z79.899 Other long term (current) drug therapy
CPT/HCPCS: 59025; 81001; 87086; 87426; G0378; G0379; U0003; U0005

== ENCOUNTER 2021-06-11 04:10 | Inpatient (IN) | payer OTHER ==
[~2021-06-11] VITALS: Ht 163.8 cm; Wt 94.2 kg
[2021-06-11 04:30] VITALS: BP 127/81
[2021-06-11] MEDS ORDERED: 0.9 % SODIUM CHLORIDE 10 ML DISP.SYRIN. IV PRN ×2 (05:00→11:15)
[2021-06-11] MEDS ORDERED: MAG HYDROX/ALUMINUM HYD/SIMETH 30 ML ORAL.SUSP PO PRN ×2 (05:00→11:15)
[2021-06-11] MEDS ORDERED: TERBUTALINE 1 MG/ML VIAL. SQ PRN (05:00)
[2021-06-11] MEDS ORDERED: CITRIC ACID/SODIUM CITRATE 30 ML SOLUTION. PO PRN (05:00)
[2021-06-11] MEDS ORDERED: BUTORPHANOL 2 MG/ML VIAL. IVP PRN ×2 (05:00)
[2021-06-11] MEDS ORDERED: OXYTOCIN 30 UNIT/500 ML PREMIX 500 ML IV PRN ×3 (05:00→11:15)
[2021-06-11] MEDS ORDERED: LIDOCAINE 1% PF 30 ML VIAL. INJ PRN (05:00)
[2021-06-11] MEDS ORDERED: IBUPROFEN 400 MG TABLET. PO PRN (05:00)
[2021-06-11] MEDS: IV RINGERS,LACTATED 1000ML 1,000 ML IV SCH ×2 (05:20→09:15)
[2021-06-11 05:26] LABS: BILIRUBIN,URINE NEGATIVE (NEG); CLARITY,URINE CLOUDY; COLOR,URINE YELLOW; NITRITE,URINE NEGATIVE (NEG); PROTEIN,URINE NEGATIVE (NEG-TRACE)
[2021-06-11 05:28] LABS: BASO % 0 % (0-3); EOS % 0 % (0-3); HEMATOCRIT 32.3 % (36.0-47.0); HEMOGLOBIN 11.1 g/dL (12.0-15.5); LYMPH % 25 % (24-48); MEAN CORPUSCULAR HEMOGLOBIN 31 pg (25-35); MEAN CORPUSCULAR HGB CONC 34 g/dL (31-37); MEAN CORPUSCULAR VOLUME 91 fL (79-100); MONO # 0.6 x10^3/uL (0.0-1.1); MONO % 7 % (0-9); NEUT # 5.2 x10^3/uL (1.8-7.7); NEUT % 67 % (31-73); PLATELET COUNT 229 x10^3/uL (140-400); RED BLOOD COUNT 3.54 x10^6/uL (3.50-5.40); RED CELL DISTRIBUTION WIDTH 12.5 % (11.5-14.5); WHITE BLOOD COUNT 7.7 x10^3/uL (4.0-11.0)
[2021-06-11] MEDS ORDERED: PENICILLIN G K 5,000,000 UNIT in IV DEXTROSE 5% 100ML 100 ML IV ONE (05:30)
[2021-06-11 05:48] LABS: AMORPHOUS SEDIMENT,UR PRESENT /HPF
[2021-06-11 06:02] LABS: BACTERIA,URINE FEW /HPF (0-FEW); RBC,URINE OCC /HPF (0-2)
--- NOTE | 2021-06-11 09:01 | PDOC1 ---
SPECIAL TESTER H&P Date of Admission: Date of Admission: Jun 11, 2021 at 04:10 History of Present Illness: EDC: 06/11/21 LMP: 09/04/20 30y @ 40.0 by L=32 presents for indxn. The pt was dxed with Cholestasis of 05/16/21 after she was found to have elevated bile acids after a visit on 05/10/21. She did not return to the office until 06/07/21. At that time it was explained that since her total bile acids were only slightly elevated (< 40), the recommendation was indxn at 37 to 39 wks. At the time the pt was 39.3, so the pt agreed to be placed on the indxn schedule for today. The pt throughout has been very hypersensitive to SVE, so it was difficult to determine how dilated she was when Pit was started. Around 8:00 am the pt was thought to be 7 cm. About 20 minutes later it appeared she SROMed. She was rechecked and it was difficult to tell dilation, bur a amniotic sac wa still felt. An u/s was performed to ensure the baby was vtx. PMH: H/o bowel obstruction 05/2020 PSH: Denies Meds: PNV, Fe All: NKDA OBHx: TSVD x 1 SH: tob use, no EtOH FH: Asthma, HTN Past Medical History: Cardiovascular: No pertinent hx Pulmonary: No pertinent hx GI: No pertinent hx Heme/Onc: No pertinent hx Hepatobiliary: No pertinent hx Psych: No pertinent hx Rheumatologic: No pertinent hx Infectious disease: No pertinent hx Renal/: No pertinent hx Endocrine: No pertinent hx Past Surgical History: No pertinent history Social History: ALCOHOL: occassional Drugs: Marijuana Medications: Meds: Current Medications Medications (Trade) Dose Ordered Sig/Addie Route PRN Reason Start Time Stop Time Status Last Admin Dose Admin Ringer's Solution 1,000 ml @ 125 mls/hr Q8H IV 06/11/21 05:00 06/11/21 05:20 Butorphanol Tartrate (Stadol) 2 mg PRN Q1HR PRN IVP Severe labor pain 06/11/21 05:00 06/11/21 06:48 Al Hydroxide/Mg Hydroxide (Mylanta Plus Xs) 30 ml PRN Q4HRS PRN PO HEARTBURN / GAS 7/12/21 05:00 06/11/21 05:22 Oxytocin 500 ml @ 0 mls/hr CONT PRN IV SEE I/O RECORD 06/11/21 05:00 06/11/21 05:59 Penicillin G Potassium [id number] unit/Dextrose 100 ml @ 100 mls/hr 1X ONCE IV 06/11/21 05:30 06/11/21 06:29 DC 06/11/21 05:22 Allergies: Coded Allergies: No Known Drug Allergies (Unverified , 07/30/14) Physical Exam: Vital Signs: Vital Signs Date Time Temp Pulse Resp B/P (MAP) Pulse Ox O2 Delivery O2 Flow Rate FiO2 06/11/21 06:48 22 Room Air 06/11/21 04:30 97.5 82 127/81 (96) 99 97.5 PE: GENERAL: No apparent distress. Alert and oriented. HEENT: Head normocephalic, atraumatic. NECK: Supple LUNGS: Clear to auscultation. HEART: RRR, S1, S2 present, pulses intact ABDOMEN: Soft, positive bowel sounds. EXTREMITIES: No cyanosis or edema. NEUROLOGIC: Normal speech, normal tone PSYCHIATRIC: Normal affect, normal mood. SKIN: No ulceration. FHT: 120s +acels/no decels/mLTV [place]: 2-3 min SVE: 7/C/BB Labs: Laboratory Tests Test 06/11/21 04:15 06/11/21 04:20 Urine Collection Type Unknown Urine Color Yellow Urine Clarity Cloudy Urine pH 8.0 (<5.0-8.0) Urine Specific [employer] 1.015 (1.000-1.030) Urine Protein Negative mg/dL (NEG-TRACE) Urine Glucose (UA) Negative mg/dL (NEG) Urine Ketones (Stick) 40 mg/dL (NEG) Urine Blood Negative (NEG) Urine Nitrite Negative (NEG) Urine Bilirubin Negative (NEG) Urine Urobilinogen Dipstick 1.0 mg/dL (0.2 mg/dL) Urine Leukocyte Esterase Negative (NEG) Urine RBC Occ /HPF (0-2) Urine WBC 1-4 /HPF (0-4) Urine Squamous Epithelial Cells Many /LPF Urine Transitional Epithelial Cells Occ /LPF Urine Renal Epithelial Cells Occ /LPF Urine Amorphous Sediment Present /HPF Urine Bacteria Few /HPF (0-FEW) Urine Mucus Marked /LPF White Blood Count 7.7 x10^3/uL (4.0-11.0) Red Blood Count 3.54 x10^6/uL (3.50-5.40) Hemoglobin 11.1 g/dL (12.0-15.5) L Hematocrit 32.3 % (36.0-47.0) L Mean Corpuscular Volume 91 fL (79-100) Mean Corpuscular Hemoglobin 31 pg (25-35) Mean Corpuscular Hemoglobin Concent 34 g/dL (31-37) Red Cell Distribution Width 12.5 % (11.5-14.5) Platelet Count 229 x10^3/uL (140-400) Neutrophils (%) (Auto) 67 % (31-73) Lymphocytes (%) (Auto) 25 % (24-48) Monocytes (%) (Auto) 7 % (0-9) Eosinophils (%) (Auto) 0 % (0-3) Basophils (%) (Auto) 0 % (0-3) Neutrophils # (Auto) 5.2 x10^3/uL (1.8-7.7) Lymphocytes # (Auto) 2.0 x10^3/uL (1.0-4.8) Monocytes # (Auto) 0.6 x10^3/uL (0.0-1.1) Eosinophils # (Auto) 0.0 x10^3/uL (0.0-0.7) Basophils # (Auto) 0.0 x10^3/uL (0.0-0.2) Laboratory Tests 06/11/21 04:20 Laboratory Tests 06/11/21 04:20 Assessment & Plan: A/P 30y @ 40.0 by L=32 1.) Indxn Pit maxed at 4U, recently stopped 2.) Cholestasis of - total bile acid 12. LFTs nml. 3.) Steve pos - GRAHAM neg 03/12/21 4.) Decline flu vaccine 5.) Anemia - on Fe daily 6.) Fetus cat I FHT 7.) GBS pos on PCN GAGAN FOLEY MD Jun 11, 2021 09:01
[2021-06-11] MEDS ORDERED: PENICILLIN G K 2,500,000 UNIT in IV DEXTROSE 5% 50 ML IV SCH (09:30)
--- NOTE | 2021-06-11 11:02 | PDOC4 ---
VAGINAL DELIVERY DATE DATE: 06/11/21 TIME: 11:00 TIME Patient delivered a viable female over intact perineum at 1025 in OP position. Wt 6 lb 11.5 oz. Apgars 8/9. Placenta delivered spontaneously, intact with 3VC. Small 2nd degree laceration found to be hemostatic so not repaired. Good hemostasis noted. 20 U of Pit given with IVF. EBL 200cc. WEIGHT Weight [ ] GAGAN FOLEY MD Jun 11, 2021 11:02
[2021-06-11] MEDS ORDERED: ZOLPIDEM 5 MG TABLET. PO PRN (11:15)
[2021-06-11] MEDS ORDERED: oxyCODONE/APAP 5/325 1 TAB TABLET PO PRN (11:15)
[2021-06-11] MEDS ORDERED: ACETAMINOPHEN 325 MG TABLET. PO PRN (11:15)
[2021-06-11] MEDS ORDERED: PHENYLEPH/MINERAL OIL/PETROLAT RECTAL OINTMENT TUBE. RC PRN (11:15)
[2021-06-11] MEDS ORDERED: diphenhydrAMINE HCL 25 MG CAPSULE PO PRN (11:15)
[2021-06-11] MEDS ORDERED: MMR per PROTOCOL. MC PRN (11:15)
[2021-06-11] MEDS ORDERED: MAGNESIUM HYDROXIDE 2,400 MG/30 ML ORAL.SUSP. PO PRN (11:15)
[2021-06-11] MEDS ORDERED: TDaP (Adacel) per PROTOCOL. MC PRN (11:15)
[2021-06-11] MEDS ORDERED: BENZOCAINE 20% TOPICAL AEROSOL SPRAY 57GM CAN. TP PRN (11:15)
[2021-06-11] MEDS ORDERED: SIMETHICONE 80 MG TAB.CHEW PO PRN (11:15)
[2021-06-11] MEDS ORDERED: HYDROCORTISONE 1% TOPICAL OINTMENT 30GM TUBE. TP PRN (11:15)
[2021-06-11] MEDS: IBUPROFEN 400 MG TABLET. PO PRN ×2 (13:58→21:37)
[2021-06-11 17:15] VITALS: BP 128/65
[2021-06-11 22:00] VITALS: BP 115/70
[2021-06-12 00:44] VITALS: BP 110/68
[2021-06-12 08:00] VITALS: BP 104/63
[2021-06-12 08:27] LABS: HEMATOCRIT 28.8 % (36.0-47.0); HEMOGLOBIN 10.2 g/dL (12.0-15.5); RED BLOOD COUNT 3.1 x10^6/uL (3.50-5.40); RED CELL DISTRIBUTION WIDTH 12.4 % (11.5-14.5); WHITE BLOOD COUNT 10.7 x10^3/uL (4.0-11.0)
[2021-06-12] MEDS: DOCUSATE SODIUM 100 MG CAPSULE. PO PRN ×2 (08:45→16:50)
[2021-06-12] MEDS: PRENATAL MULTIVITAMIN TABLET. PO SCH (08:46)
--- NOTE | 2021-06-12 10:15 | PDOC ---
COMPONENT OVERHAUL OPERATOR PROGRESS NOTE Date of Service: DATE: 06/12/21 TIME: 10:14 Subjective: Pt with good pain control. Jerson PO. Voiding. Minimal lochia. Objective: Vital Signs: Vital Signs Date Time Temp Pulse Resp B/P (MAP) Pulse Ox O2 Delivery O2 Flow Rate FiO2 06/11/21 17:15 98.8 59 20 128/65 (86) 98.8 06/11/21 22:00 98 Room Air Vital Signs Date Time Temp Pulse Resp B/P (MAP) Pulse Ox O2 Delivery O2 Flow Rate FiO2 06/12/21 08:00 98.2 58 18 104/63 (77) 100 Room Air 98.2 Labs: Laboratory Tests Test 06/12/21 08:00 White Blood Count 10.7 x10^3/uL (4.0-11.0) Red Blood Count 3.10 x10^6/uL (3.50-5.40) L Hemoglobin 10.2 g/dL (12.0-15.5) L Hematocrit 28.8 % (36.0-47.0) L Mean Corpuscular Volume 93 fL (79-100) Mean Corpuscular Hemoglobin 33 pg (25-35) Mean Corpuscular Hemoglobin Concent 35 g/dL (31-37) Red Cell Distribution Width 12.4 % (11.5-14.5) Platelet Count 198 x10^3/uL (140-400) Laboratory Tests 06/12/21 08:00 Laboratory Tests 06/12/21 08:00 Physical Exam: GENERAL: No apparent distress. Alert and oriented. HEENT: Head normocephalic, atraumatic. NECK: Supple LUNGS: Clear to auscultation. HEART: RRR, S1, S2 present, pulses intact ABDOMEN: Soft, positive bowel sounds. EXTREMITIES: No cyanosis or edema. NEUROLOGIC: Normal speech, normal tone PSYCHIATRIC: Normal affect, normal mood. SKIN: No ulceration. FFNT below umb No C/C/E Assessment & Plan: A/P 30y PPD #1 s/p 1.) PP doing well 2.) Cholestasis of symptoms have resolved s/p delivery 3.) Decline flu vaccine 4.) Anemia Hgb 11.1 -> 10.2 5.) Cont PP GAGAN Damon MD Jun 12, 2021 10:15
[2021-06-12 12:10] VITALS: BP 105/59
[2021-06-12] MEDS: IBUPROFEN 400 MG TABLET. PO PRN ×2 (14:27→22:24)
[2021-06-12 16:45] VITALS: BP 111/70
[2021-06-12] MEDS: FERROUS SULFATE 325 MG TABLET. PO SCH (18:58)
[2021-06-12 22:30] VITALS: BP 113/67
[2021-06-13 05:00] VITALS: BP 116/65
[2021-06-13] MEDS: IBUPROFEN 400 MG TABLET. PO PRN (06:19)
[2021-06-13] MEDS ORDERED: DOCU-109 PO (08:35)
[2021-06-13] MEDS ORDERED: IBUP-1060 PO (08:35)
[2021-06-13] MEDS: PRENATAL MULTIVITAMIN TABLET. PO SCH (08:47)
[2021-06-13] MEDS: FERROUS SULFATE 325 MG TABLET. PO SCH (08:47)
[2021-06-13] MEDS: DOCUSATE SODIUM 100 MG CAPSULE. PO PRN (08:47)
--- NOTE | 2021-06-13 09:38 | PDOC ---
WINCH DERRICK OPERATOR PROGRESS NOTE Date of Service: DATE: 06/13/21 TIME: 09:37 Subjective: Pt with good pain control. Jerson PO. Voiding. Minimal lochia. Objective: Vital Signs: Vital Signs Date Time Temp Pulse Resp B/P (MAP) Pulse Ox O2 Delivery O2 Flow Rate FiO2 06/12/21 08:00 98.2 58 18 104/63 (77) 100 Room Air 98.2 Vital Signs Date Time Temp Pulse Resp B/P (MAP) Pulse Ox O2 Delivery O2 Flow Rate FiO2 06/13/21 09:11 Room Air 06/13/21 05:00 98.4 61 18 116/65 (82) 98.4 06/12/21 22:30 98 Physical Exam: GENERAL: No apparent distress. Alert and oriented. HEENT: Head normocephalic, atraumatic. NECK: Supple LUNGS: Clear to auscultation. HEART: RRR, S1, S2 present, pulses intact ABDOMEN: Soft, positive bowel sounds. EXTREMITIES: No cyanosis or edema. NEUROLOGIC: Normal speech, normal tone PSYCHIATRIC: Normal affect, normal mood. SKIN: No ulceration. FFNT below umb No C/C/E Assessment & Plan: A/P 30y PPD #2 s/p 1.) PP doing well 2.) Cholestasis of symptoms have resolved s/p delivery 3.) Decline flu vaccine 4.) Anemia Hgb 11.1 -> 10.2 5.) D/c home GAGAN FOLEY MD Jun 13, 2021 09:38
[2021-06-13] MEDS ORDERED: DIPH,PERTUSS(ACELL),TET VAC/PF 0.5 ML SYRINGE. VAX IM ONE (10:30)
[2021-06-13 11:30] VITALS: BP 125/75
--- NOTE | 2021-06-13 11:45 | NUR ---
Pt. dc'd to home accompanied by friend. DC instructions given to pt, v/u. Pt refused MMR vaccine before dismissal even though patient nonimmune, risks of being unvaccinated and benefits of vaccine explained to patient; pt. did consent to the TDAP vaccine and it was given prior to DC. Pt. ambulated to personal vehicle accompanied by RN and student RN. Pt. plans to follow-up with [facility] on 07/25/21 as scheduled.
--- NOTE | 2021-06-13 18:23 | PATHOLOGY ---
[facility] Accession Number: [id number] . 01 Material submitted: . placenta - PLACENTA AND CORD . 01 Clinical history: . TERM INTRAUTERINE VAGINAL DELIVERY SAME-GIRL ROUTINE INSPECTION HISTORY: CHOLESTASIS . 02 Diagnosis: 533 gram term placenta of an estimated 40 weeks gestation with attached membranes and umbilical cord and separate segment of umbilical cord: - No significant pathologic abnormalities. (CLARISSAM:amparo; 06/13/2021) MBR 06/13/2021 1542 Local . 02 Comment: There is no evidence of an acute chorioamnionitis or villitis. There are no infarcts. (CLARISSAM:amparo; 06/13/2021) . 02 Electronically signed: . Vikash Hammer MD, Pathologist NPI- [id number] . 01 Gross description: . Fixative: Formalin Labeled: Specimen container: Placenta; requisition: Placenta and cord Specimen received: Intact larson placenta with membranes and attached umbilical cord. Additional segment of umbilical cord within the specimen container. Dimensions: 18.5 x 16.5 x 2.0 cm membranes appearance: [place] and semitranslucent membrane rupture: 6.0 cm from placental disc membrane insertion: Marginal Umbilical cord: 25 cm in length (attached to disc) 15.5 cm in length (within specimen container), 1.5 cm in diameter Umbilical cord insertion: Eccentric, 4.5 cm from the closest placental margin Number of umbilical vessels: 3 Umbilical cord appearance: Grossly unremarkable, displaying six spirals per 10 cm Trimmed placental weight: 533 g surface: [place] and well vascularized. The amnion is focally stripped away from the chorion. Meconium staining is not grossly present. Maternal surface: Red-brown and rubbery with intact cotyledons which appear entirely present Abnormalities: No infarcts are grossly identified . Group Social Worker sections are submitted as follows: A1 proximal and distal umbilical cord A2 membranes, rolled A3 insurance claim representative peripheral placenta A4 insurance claim representative central placenta, bisected A5 additional maternal surface A6 surface adjacent to umbilical cord insertion site's (MRF; 06/12/2021) MFE/MFE 06/13/2021 1540 Local . 02 Pathologist provided ICD-10: O80, Z37.0, Z3A.39 . 02 CPT . 062875 Specimen Comment: Report sent to Performed at: [facility] [address] [facility] [address], [place] [id number] MD Ryder Sibley MD Phone: [phone] Performed at: 02 [facility] [address] [place] [id number] MD Vikash Hammer MD Phone: [phone]
--- NOTE | 2021-06-13 21:21 | DS ---
DATE OF DISCHARGE: 06/13/2021 ADMISSION DIAGNOSES: 1. Intrauterine at 40 weeks and 0 days by LMP equal to a 32-week ultrasound. 2. Induction of labor. 3. Cholestasis of . 4. Gonorrhea positive with negative treatment of cure. 5. Declined flu vaccine. 6. Anemia. 7. Group B Streptococcus positive. DISCHARGE DIAGNOSES: 1. Intrauterine at 40 weeks and 0 days by LMP equal to a 32-week ultrasound. 2. Induction of labor. 3. Cholestasis of . 4. Gonorrhea positive with negative treatment of cure. 5. Declined flu vaccine. 6. Anemia. 7. Group B Streptococcus positive. PROCEDURE: Spontaneous vaginal delivery. BRIEF HOSPITAL COURSE: The patient is a 30-year-old 2, para 1-0-0-1, who presented to Labor and Delivery at 40 weeks and 0 days by LMP equal to a 32-week ultrasound for induction of labor. The patient was diagnosed with cholestasis of 05/16 after the patient was found to have elevated bile salts from office visit on 05/10/2021. The patient did not return to the office until 06/07. At that time, it was then explained to her since her total bile salts were elevated, but below 40, the recommendation was for induction of labor between 37-39 weeks. At that time, the patient was ready. Beyond 39 weeks, the patient was put on the induction schedule. The patient arrived at onset date and was started on Pitocin. The patient ultimately delivered by vaginal delivery. See delivery note for full detail. By day #2, the patient was meeting all discharge criteria and was subsequently discharged home. Of note, the patient's hemoglobin on admission was 11.1 and after delivery, was found to be 10.2. DISCHARGE INSTRUCTIONS: The patient was told not to lift anything greater than 20 pounds, have pelvic rest for 6 weeks. CALL IF: The patient was to call if she has fevers, chills, nausea, vomiting, abdominal pain, or any additional questions or concerns. FOLLOWUP APPOINTMENT: The patient was to follow up on 07/25 at 2:00 p.m. for a visit. DISCHARGE MEDICATIONS: The patient was given a prescription for Motrin 800 mg, 30 pills and Colace 100 mg, 30 pills. FERNANDA/DIANA DR: Cookie TID: [id number]
== END 2021-06-13 11:45 | disposition home or self-care (01) | DRG 805 ==
LOC: OBSVTOIN 04:10 → 3 SO LND 04:10
PROVIDERS: ADMIT Obstetrics & Gynecology; ATTEND Obstetrics & Gynecology
PROC: 10E0XZZ Delivery of Products of Conception, External Approach (ICD-10-PCS; principal; 2021-06-11)
PROC: 0KQM0ZZ Repair Perineum Muscle, Open Approach (ICD-10-PCS; 2021-06-11)
PROC: 3E033VJ Introduction of Other Hormone into Peripheral Vein, Percutaneous Approach (ICD-10-PCS; 2021-06-11)
PROC: 3E0234Z Introduction of Serum, Toxoid and Vaccine into Muscle, Percutaneous Approach (ICD-10-PCS; 2021-06-11)
DX: O26.62 Liver and biliary tract disorders in childbirth (principal); K83.1 Obstruction of bile duct; Z37.0 Single live birth; D64.9 Anemia, unspecified; O70.1 Second degree perineal laceration during delivery; O99.02 Anemia complicating childbirth; O99.824 Streptococcus B carrier state complicating childbirth; Z3A.40 40 weeks gestation of pregnancy; Z82.49 Family history of ischemic heart disease and other diseases of the circulatory system; Z82.5 Family history of asthma and other chronic lower respiratory diseases; Z23 Encounter for immunization
CPT/HCPCS: 36415; 81001; 85025; 85027; 86592; 86850; 86900; 86901; 88307; 90471; 90715; J0595; J2540; J2590; J7060; J7120; G0378